=== PATIENT | female | born 1990 | race Caucasian/White ===

== ENCOUNTER → 2017-05-25 | Outpatient (CLI) | payer MEDICAID ==
[~2017-05-25] MED LIST: DOXY25TA46 PO; METO5TAB75 PO; NAPR-243 PO; ONDA4TAB8 PO; ONDA4TAB8 SL; ONDAN4ODT PO; PYRI25TA3 PO; TRM50T PO
--- NOTE | 2017-05-25 11:38 | Diagnostic Imaging Report ---
INDICATION: Back pain. TIME OF EXAMINATION: 11:05 a.m. FINDINGS: Curvature and alignment of the thoracic spine is normal. The vertebral body heights are well-maintained. No fractures identified. There is no subluxation identified. The pedicles and paraspinous line are intact. IMPRESSION: No acute bony abnormality is detected. Dictated by: Dictated on workstation # [id number]
--- NOTE | 2017-05-25 11:40 | Diagnostic Imaging Report ---
INDICATION: Increasing neck pain radiating into the upper back. TIME OF EXAM: 11:02 AM COMPARISON: No prior studies are available for comparison. FINDINGS: Alignment is normal. Vertebral body heights and disc spaces are well-maintained. C1-T1 is identified with clarity on the lateral view. No fracture or subluxation is identified. The prevertebral tissues are normal. The odontoid is intact. IMPRESSION: No acute bony abnormality is detected. Dictated by: Dictated on workstation # [id number]
== END ==
LOC: RAD 10:24
PROVIDERS: ATTEND Family Medicine
DX: M54.2 Cervicalgia (principal); M54.6 Pain in thoracic spine
CPT/HCPCS: 72040; 72072

== ENCOUNTER 2017-08-14 01:46 | Emergency (ER) | payer MEDICAID ==
[~2017-08-14] VITALS: Ht 190.5 cm; Wt 83.9 kg
[~2017-08-14 01:46] MED LIST changes: -DOXY25TA46 PO; +UNISOM25 M1 PO
[2017-08-14 02:19] LABS: BASOPHILS % (AUTO) 0 % (0-10); EOSINOPHILS # (AUTO) 0.2 10^3/uL (0.0-0.3); EOSINOPHILS % (AUTO) 2 % (0-10); HEMATOCRIT 40 % (35-52); HEMOGLOBIN 14.2 G/DL (11.5-16.0); LYMPHOCYTES # (AUTO) 3.3 X 10^3 (1.0-4.0); LYMPHOCYTES % (AUTO) 38 % (12-44); MEAN CORPUSCULAR HEMOGLOBIN 31 PG (25-34); MEAN CORPUSCULAR HGB CONC 36 G/DL (32-36); MEAN CORPUSCULAR VOLUME 87 FL (80-99); MEAN PLATELET VOLUME 9.3 FL (7.4-10.4); MONOCYTES # (AUTO) 0.8 X 10^3 (0.0-1.0); MONOCYTES % (AUTO) 9 % (0-12); NEUTROPHILS # (AUTO) 4.4 X 10^3 (1.8-7.8); NEUTROPHILS % (AUTO) 51 % (42-75); PLATELET COUNT 229 10^3/uL (130-400); RED BLOOD COUNT 4.59 10^6/uL (4.35-5.85); RED CELL DISTRIBUTION WIDTH 12.5 % (10.0-14.5); WHITE BLOOD COUNT 8.8 10^3/uL (4.3-11.0)
--- NOTE | 2017-08-14 02:19 | ED Abdominal Pain ---
General Chief Complaint: Abdominal/GI Problems Stated Complaint: SEVERE ABD PAIN Nursing Triage Note: PT PRESENTS TO ER WITH COMPLAINT OF ABD PAIN THAT IS IN HER LOWER ABD AND UP UNDER HER RIB CAGES. STATES THE PAIN STARTED 30 MIN AGO AFTER HAVING INTERCOURSE. ALSO STATED THAT SHE EXPERIENCED THE SAME PAIN A WEEK AGO THAT WAS NOT AFTER INTERCOURSE, BUT WENT AWAY AFTER AN HOUR. Sepsis Screen: No Definite Risk Source of Information: Patient, Spouse Exam Limitations: No Limitations History of Present Illness Date Seen by Provider: August 14, 2017 Time Seen by Provider: 02:07 Initial Comments The patient presents to the ER by private conveyance with her significant other and a chief complaint that about half hour prior to arrival she began to experience bilateral low pelvic pain that was described as sharp, 8 out of 10. She says she has had this pain about a week ago when she wasn't doing anything and it just came out of nowhere lasted for about an hour and then went away. This time however it was accompanied by nausea and vomiting times one. She is no longer nauseated. She did not take anything for the pain tonight because of her vomiting. She says this time the pain occurred directly after sex. She is not having any discharge, fevers, chills, nausea or other time. She does not have any history of abdominal surgeries. She is a with a Nexplanon in place. She is in a monogamous relationship with her and denies any history of STI's. Her last bowel movement was yesterday, normal formed. She denies a history of trauma or kidney stones. She denies dysuria. Allergies and Home Medications Allergies Coded Allergies: No Known Drug Allergies (Unverified , 07/03/11) Patient Home Medication List Home Medication List Reviewed: Yes Review of Systems Constitutional: No chills, No diaphoresis, No fever, No malaise EENTM: No Blurred Vision, No Double Vision Respiratory: Denies Cough, Denies Shortness of Air Cardiovascular: Denies Chest Pain, Denies Lightheadedness, Denies Syncope Gastrointestinal: See HPI; Denies Abdomen Distended; Abdominal Pain; Denies Constipated, Denies Diarrhea; Nausea; Denies Poor Fluid Intake; Vomiting Genitourinary: Denies Burning, Denies Discharge; Flank Pain (bilateral); Denies Hematuria Musculoskeletal: No back pain, No joint pain Skin: No pruritus, No rash Past Bieahhj-Yfqcsw-Ypqbra Hx Patient Social History Alcohol Use: Occasionally Uses Recreational Drug Use: No Smoking Status: Current Everyday Smoker Recent Foreign Travel: No Contact w/Someone Who Travel: No Recent Infectious Disease Expo: No Immunizations Up To Date Tetanus Booster (TDap): Unknown PED Vaccines UTD: Yes Seasonal Allergies Seasonal Allergies: No Past Medical History Surgeries: Yes (WISDOM TEETH) Respiratory: No Cardiac: No Neurological: No Reproductive Disorders: No Female Reproductive Disorders: Ovarian Cyst Sexually Transmitted Disease: No Gastrointestinal: No Musculoskeletal: No Endocrine: No Cancer: No Psychosocial: No Integumentary: No Blood Disorders: No Physical Exam Vital Signs Vital Signs - First Documented 08/14/17 01:53 Temp 97.4 Pulse 80 Resp 20 B/P (MAP) 126/68 (87) Pulse Ox 98 O2 Delivery Room Air Capillary Refill : Less Than 3 Seconds General Appearance: WD/WN, mild distress HEENT: PERRL/EOMI, pharynx normal (oral mucosa is moist) Neck: non-tender, full range of motion, supple, normal inspection Respiratory: no respiratory distress, no accessory muscle use Cardiovascular: normal peripheral pulses, regular rate, rhythm, no edema Peripheral Pulses: 2+ Radial Pulses (R), 2+ Radial Pulses (L) Gastrointestinal: normal bowel sounds, soft, guarding (suprapubic and bilateral lower quadrants.), rebound (over McBurney's point), tenderness ( bilateral lower quadrants and suprapubic), other (positive for psoas signs on the right and Rovsing sign. Percussion to heels reproduces pain in her right lower quadrant and umbilical region.) Extremities: normal inspection, no pedal edema, normal capillary refill Back: normal inspection, no CVA tenderness Neurologic/Psychiatric: no motor/sensory deficits, alert, normal mood/affect, oriented x 3 Skin: normal color, warm/dry Progress/Results/Core Measures Results/Orders Lab Results Laboratory Tests Test 08/14/17 02:00 Range/Units White Blood Count 8.8 4.3-11.0 10^3/uL Red Blood Count 4.59 4.35-5.85 10^6/uL Hemoglobin 14.2 11.5-16.0 G/DL Hematocrit 40 35-52 % Mean Corpuscular Volume 87 80-99 FL Mean Corpuscular Hemoglobin 31 25-34 PG Mean Corpuscular Hemoglobin Concent 36 32-36 G/DL Red Cell Distribution Width 12.5 10.0-14.5 % Platelet Count 229 130-400 10^3/uL Mean Platelet Volume 9.3 7.4-10.4 FL Neutrophils (%) (Auto) 51 42-75 % Lymphocytes (%) (Auto) 38 12-44 % Monocytes (%) (Auto) 9 0-12 % Eosinophils (%) (Auto) 2 0-10 % Basophils (%) (Auto) 0 0-10 % Neutrophils # (Auto) 4.4 1.8-7.8 X 10^3 Lymphocytes # (Auto) 3.3 1.0-4.0 X 10^3 Monocytes # (Auto) 0.8 0.0-1.0 X 10^3 Eosinophils # (Auto) 0.2 0.0-0.3 10^3/uL Basophils # (Auto) 0.0 0.0-0.1 10^3/uL Urine Color YELLOW Urine Clarity CLEAR Urine pH 5 5-9 Urine Specific [place] 1.025 H 1.016-1.022 Urine Protein 2+ H NEGATIVE Urine Glucose (UA) NEGATIVE NEGATIVE Urine Ketones NEGATIVE NEGATIVE Urine Nitrite NEGATIVE NEGATIVE Urine Bilirubin NEGATIVE NEGATIVE Urine Urobilinogen NORMAL NORMAL MG/DL Urine Leukocyte Esterase 1+ H NEGATIVE Urine RBC (Auto) NEGATIVE NEGATIVE Urine RBC NONE /HPF Urine WBC 0-2 /HPF Urine Squamous Epithelial Cells 2-5 /HPF Urine Crystals NONE /LPF Urine Bacteria FEW H /HPF Urine Casts NONE /LPF Urine Mucus MODERATE H /LPF Urine Other FEW SPERM H /HPF Urine Culture Indicated NO Sodium Level 140 135-145 MMOL/L Potassium Level 3.8 3.6-5.0 MMOL/L Chloride Level 109 H 98-107 MMOL/L Carbon Dioxide Level 21 21-32 MMOL/L Anion Gap 10 5-14 MMOL/L Blood Urea Nitrogen 16 7-18 MG/DL Creatinine 0.83 0.60-1.30 MG/DL Estimat Glomerular Filtration Rate > 60 BUN/Creatinine Ratio 19 Glucose Level 108 H 70-105 MG/DL Calcium Level 9.4 8.5-10.1 MG/DL Magnesium Level 2.0 1.8-2.4 MG/DL Total Bilirubin 0.4 0.1-1.0 MG/DL Aspartate Amino Transf (AST/SGOT) 16 5-34 U/L Alanine Aminotransferase (ALT/SGPT) 18 0-55 U/L Alkaline Phosphatase 47 40-136 U/L C-Reactive Protein High Sensitivity 0.03 0.00-0.50 MG/DL Total Protein 6.9 6.4-8.2 GM/DL Albumin 4.2 3.2-4.5 GM/DL Urine Opiates Screen NEGATIVE NEGATIVE Urine Oxycodone Screen NEGATIVE NEGATIVE Urine Methadone Screen NEGATIVE NEGATIVE Urine Propoxyphene Screen NEGATIVE NEGATIVE Urine Barbiturates Screen NEGATIVE NEGATIVE Ur Tricyclic Antidepressants Screen NEGATIVE NEGATIVE Urine Phencyclidine Screen NEGATIVE NEGATIVE Urine Amphetamines Screen NEGATIVE NEGATIVE Urine Methamphetamines Screen NEGATIVE NEGATIVE Urine Benzodiazepines Screen NEGATIVE NEGATIVE Urine Cocaine Screen NEGATIVE NEGATIVE Urine Cannabinoids Screen POSITIVE H NEGATIVE My Orders Orders - TERRY CHURCHILL Ct Abdomen/Pelvis W Wo (08/14/17 02:11) Saline Lock/Iv-Start (08/14/17 02:11) Cbc With Automated Diff (08/14/17 02:11) Comprehensive Metabolic Panel (08/14/17 02:11) Hs C Reactive Protein (08/14/17 02:11) Drug Screen Stat (Urine) (08/14/17 02:11) Magnesium (08/14/17 02:11) Ua Culture If Indicated (08/14/17 02:11) Urine Bedside (08/14/17 02:11) Iohexol Injection (Omnipaque 350 Mg/Ml 1 (08/14/17 03:00) Ns (Ivpb) (Sodium Chloride 0.9%) (08/14/17 03:00) Medications Given in ED Current Medications Medications Dose Ordered Sig/Rubia Route Start Time Stop Time Status Last Admin Dose Admin Iohexol 100 ml ONCE ONCE IV 08/14/17 03:00 08/14/17 03:01 DC 08/14/17 02:52 100 ML Sodium Chloride 250 ml ONCE ONCE IV 08/14/17 03:00 08/14/17 03:01 DC 08/14/17 02:52 80 ML Vital Signs/I&O 08/14/17 01:53 Temp 97.4 Pulse 80 Resp 20 B/P (MAP) 126/68 (87) Pulse Ox 98 O2 Delivery Room Air Blood Pressure Mean: 87 Progress Progress Note #1: Time: 02:23 Progress Note Patient does not want anything for pain or nausea at this time. Concern for appendicitis versus possible kidney stone. She's not having a CVA tenderness. We 'll get a CT abdomen and pelvis with and without contrast which will allow us to evaluate for stones as well as evaluate the appendix, colon and gynecologic organs. She is fairly well hydrated on appearance so we will not be getting any IV fluids. We will obtain laboratory examination as well. Progress Note #2: Time: 03:33 Progress Note The patient is still hemodynamically stable, with no blood in her hematocrit. He would be reasonable to have her follow-up in the next week or 2 with an OB and do outpatient observation at this time. NSAIDs, heating pads and fluids. Diagnostic Imaging Diagonstic Imaging: CT (with and without contrast) Plain Films/CT/US/NM/MRI: abdomen, pelvis Comments Appendix is not seen but there are no secondary signs for acute appendicitis. Small amount of intermediate density fluid seen within the pelvis which may reflect underlying blood or proteinaceous products. Question underlying 3 cm right adnexal collapsing cyst. Reviewed: Reviewed by Me Departure Impression Primary Impression: Ruptured cyst of ovary Disposition: HOME, SELF-CARE Condition: Stable Departure-Patient Inst. Decision time for Depature: 03:34 Referrals: RANDOLPH LLOYD MD (PCP/Family) Primary Care Physician Patient Instructions: Ovarian Cyst (DC) Add. Discharge Instructions: For the pain you can use Tylenol 1000 mg every 8 hours as well as ibuprofen 800 mg every 8 hours and heating pads. Drink plenty of fluids. If you have nausea you may take one tablet of Zofran every 6 hours as needed. If you develop fevers , chills, nausea vomiting or other worrisome symptoms then you should follow-up with your provider sooner. Otherwise plan to make follow-up appointment with a primary care provider or [employer]LE[employer] SPECIALIST in the next week or 2 as needed. All discharge instructions reviewed with patient and/or family. Voiced understanding. Scripts Ondansetron (Ondansetron Odt) 4 Mg Tab.rapdis 4 MG PO Q6H PRN for NAUSEA/VOMITING, #8 TAB 0 Refills Prov: TERRY CHURCHILL 08/14/17 Copy Copies To 1: RANDOLPH LLOYD MD, TITUS J August 14, 2017 02:19
[2017-08-14 02:21] LABS: BILIRUBIN,URINE NEGATIVE (NEGATIVE); CLARITY,URINE CLEAR; COLOR,URINE YELLOW; GLUCOSE, URINE (UA) NEGATIVE (NEGATIVE); KETONES,URINE NEGATIVE (NEGATIVE); LEUKOCYTE ESTERASE ,URINE 1+ (NEGATIVE); NITRITE,URINE NEGATIVE (NEGATIVE); PH,URINE 5 (5-9); PROTEIN,URINE 2+ (NEGATIVE); UROBILINOGEN,URINE NORMAL (NORMAL)
[2017-08-14 02:31] LABS: BACTERIA,URINE FEW /HPF; URINE OTHER FEW SPERM /HPF; WBC,URINE 0-2 /HPF
[2017-08-14 02:33] LABS: AMPHETAMINE SCREEN, URINE NEGATIVE (NEGATIVE); BARBITURATE SCREEN URINE NEGATIVE (NEGATIVE); BENZODIAZEPINES SCREEN URINE NEGATIVE (NEGATIVE); CANNABINOID SCREEN, URINE POSITIVE (NEGATIVE); COCAINE SCREEN URINE NEGATIVE (NEGATIVE); METHADONE STAT NEGATIVE (NEGATIVE); METHAMPHETAMINE SCREEN URINE S NEGATIVE (NEGATIVE); OPIATE SCREEN URINE NEGATIVE (NEGATIVE); OXYCODONE STAT NEGATIVE (NEGATIVE); PROPOXYPHENE STAT NEGATIVE (NEGATIVE); TRICYCLIC ANTIDEPRESSANTS SCRE NEGATIVE (NEGATIVE)
[2017-08-14 02:36] LABS: ALANINE AMINOTRANSFERASE 18 U/L (0-55); ALBUMIN 4.2 GM/DL (3.2-4.5); ALKALINE PHOSPHATASE 47 U/L (40-136); BILIRUBIN,TOTAL 0.4 MG/DL (0.1-1.0); BUN/CREATININE RATIO 19; CALCIUM 9.4 MG/DL (8.5-10.1); CARBON DIOXIDE 21 MMOL/L (21-32); CHLORIDE 109 MMOL/L (98-107); CREATININE SERUM 0.83 MG/DL (0.60-1.30); GFR ESTIMATED > 60; GLUCOSE 108 MG/DL (70-105); POTASSIUM 3.8 MMOL/L (3.6-5.0); SODIUM 140 MMOL/L (135-145); TOTAL PROTEIN 6.9 GM/DL (6.4-8.2)
[2017-08-14] MEDS: IOHEXOL 350 MG/ML 100 ML (OMNIPAQUE 350) VIAL IV ONE (02:52)
[2017-08-14] MEDS: NS 250 ML (IVPB) BAG IV ONE (02:52)
[2017-08-14] MEDS ORDERED: ONDA4TAB11 PO (03:36)
[2017-08-14 03:53] VITALS: BP 126/68
--- NOTE | 2017-08-14 07:24 | Diagnostic Imaging Report ---
PROCEDURE: CT abdomen and pelvis with and without contrast. TECHNIQUE: Precontrast acquisitions were acquired through the abdomen and pelvis. Multiple contiguous axial images were obtained through the abdomen and pelvis after the administration of intravenous contrast. DATE: August 14, 2017. COMPARISON: None. INDICATION: 27-year-old female, lower abdominal pain after sexual intercourse. FINDINGS: The visualized portions of the lungs are clear. The heart is not enlarged. There is no pericardial effusion. The liver is normal in size and contour. There is no identified liver lesion. The main, right, and left portal veins are patent. The gallbladder is unremarkable. There is no intrahepatic or extrahepatic bile duct ablation. The main pancreatic duct is not abnormally dilated. Unremarkable appearance of the pancreatic parenchyma. The spleen is not enlarged. The adrenal glands are unremarkable. Unremarkable appearance of the renal parenchyma. The urinary collecting systems are not distended. There is no identified renal or ureteral stone. The urinary bladder is underdistended and not well evaluated. The intestinal tract is not distended. The appendix is not well identified. There are no identified prominent secondary findings to specifically suggest acute appendicitis. There is no free intraperitoneal air. There is no drainable fluid collection. There is a small amount of free pelvic fluid. Internal attenuation of the pelvic fluid measures 5 Hounsfield units which is compatible with simple fluid. There is no identified abnormally enlarged lymph node within the abdomen or pelvis which meets CT size criteria for adenopathy. There is a sclerotic lesion of the right L5 vertebral body on axial image 51 measuring 8 mm in size with internal attenuation of 1105 Hounsfield units. This most likely relates to a benign bone island. There is no identified acute bony abnormality. IMPRESSION: CT ABDOMEN AND PELVIS. 1. Small amount of free pelvic fluid of uncertain exact etiology although potentially physiologic. The free fluid demonstrates a simple fluid attenuation. 2. No identified acute abnormality within the abdomen or pelvis. Dictated by: Dictated on workstation # [id number]
== END 2017-08-14 03:53 | disposition home or self-care (01) ==
LOC: EDUNIT# 01:46 → ER 01:50
DX: N83.201 Unspecified ovarian cyst, right side (principal); F17.200 Nicotine dependence, unspecified, uncomplicated
CPT/HCPCS: 36415; 74178; 80053; 80306; 81000; 83735; 84703; 85025; 86141

== ENCOUNTER 2018-01-09 09:47 | Emergency (ER) | payer OTHER, MEDICAID ==
[~2018-01-09] VITALS: Ht 190.5 cm; Wt 89.8 kg
[~2018-01-09 09:47] MED LIST changes: +ONDA4TAB11 PO
--- OUTSIDE RECORDS SUMMARY | 2018-01-09 09:52 | XMS REPORT ---
Author Author ARNULFO SHARMA Organization [employer] Address Unknown Phone Unavailable Care Team Providers Care Seamless Tube Drawer Name Role Phone ARNULFO SHARMA CP Unavailable Allergies No Known Allergies Problems Problem Type Condition ICD-9 Code Onset Dates Condition Status Problem Supervision of normal subsequent V22.1 Active Medications Medication Code System Code Instructions Start Date End Date Status Dosage oGrdon [facility] [address]-58 4 MG Orally every 8 hours as needed Nov 18, 2014 1 tablet Results No Known Results Summary Purpose [employer] Submission
--- OUTSIDE RECORDS SUMMARY | 2018-01-09 09:52 | XMS REPORT | Clinical Summary ---
Author Author [facility] Organization [facility] Address Unknown Phone Unavailable Care Team Providers Care Assistant Professor Of History Name Role Phone PCP Unavailable Allergies Not on File Current Medications Not on file Active Problems Not on file Social History Tobacco Use Types Packs/Day Years Used Date Never Assessed Sex Assigned at Date Recorded Not on file Last Filed Vital Signs Not on file Plan of Treatment Not on file Results Not on filefrom Last 3 Months
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
--- OUTSIDE RECORDS SUMMARY | 2018-01-09 09:52 | XMS REPORT ---
Author Author ISH SANTANA Organization [employer] Address Unknown Phone Unavailable Care Team Providers Care Data Support Specialist Name Role Phone ISH SANTANA CP Unavailable Allergies, Adverse Reactions, Alerts Substance Reaction Event Type N.K.D.A. Info Not Available Non Drug Allergy Problems Problem Type Condition ICD-9 Code Onset Dates Condition Status Assessment Supervision of normal subsequent V22.1 Active Problem Supervision of normal subsequent V22.1 Active Medications Medication Code System Code Instructions Start Date End Date Status Dosage [facility] [place] [address] 28-0.8 MG Orally daily Nov 06, 2014 1 Procedures Procedure Coding System Code Date URINE-NO MICRO CPT-4 82045 Nov 06, 2014 Office Visit, Est Pt., Level 3 CPT-4 94221 Nov 06, 2014 URINE TEST CPT-4 99386 Nov 06, 2014 Vital Signs Date/Time: Nov 06, 2014 Temperature 97.0 F Weight 163.0 lbs Height 74 in BMI 20.928 Index Blood Pressure Diastolic 70 mmHg Blood Pressure Systolic 110 mmHg Cardiac Monitoring Heart Rate 88 bpm Results No Known Results Summary Purpose [employer] Submission
--- OUTSIDE RECORDS SUMMARY | 2018-01-09 09:52 | XMS REPORT ---
Author Author HASEEB SÁNCHEZ [facility] Address [address] [place] [address] Care Team Providers Care Microbiology Soil Scientist Name Role Phone HASEEB SÁNCHEZ Unavailable PROBLEMS Type Condition ICD9-CM Code [id number] Code Onset Dates Condition Status SNOMED Code Problem Supervision of normal subsequent V22.1 Active 58318078 Assessment Acute upper respiratory infection, unspecified J06.9 Feb, Active 914576207 ALLERGIES Substance Reaction Event Type Date Status N.K.D.A. Unknown Non Drug Allergy Feb, Unknown SOCIAL HISTORY No smoking Hx information available PLAN OF CARE VITAL SIGNS Height 74 in 2016-03-01 Weight 170 lbs 2016-03-01 Heart Rate 82 bpm 2016-03-01 Respiratory Rate 18 2016-03-01 BMI 21.82 kg/m2 2016-03-01 Blood pressure systolic 108 mmHg 2016-03-01 Blood pressure diastolic 66 mmHg 2016-03-01 MEDICATIONS Medication Instructions Dosage Frequency Start Date End Date Duration Status PredniSONE 20 mg Orally Once a day 2 tablets 24h Feb, Feb, 05 days Active RESULTS No Results PROCEDURES Procedure Date Ordered Related Diagnosis Body Site Office Visit, Est Pt., Level 3 Mar 01, 2016 IMMUNIZATIONS No Known Immunizations
--- OUTSIDE RECORDS SUMMARY | 2018-01-09 09:53 | XMS REPORT ---
Author Author PETERSON SIMS [facility] Address [address] [place] [address] Care Team Providers Care Bin Operator Name Role Phone PETERSON SIMS Unavailable PROBLEMS Type Condition ICD9-CM Code NSA17-IP Code Onset Dates Condition Status SNOMED Code Problem Acute allergic rhinitis, unspecified seasonality, unspecified trigger J30.9 Active 82024826 Problem Irregular periods/menstrual cycles N92.6 Active 68087214 Problem Supervision of normal subsequent V22.1 Active 02987027 ALLERGIES No Known Allergies ENCOUNTERS Encounter Location Date Diagnosis [facility] [address] [address] Mar, Acute nasopharyngitis J00 [facility] [address] [place] [id number] [place] [address] -[address] 16 Feb, 2017 Acute allergic rhinitis, unspecified seasonality, unspecified trigger J30.9 [facility] [id number] [place] [address]86- 7065 14 Jan, 2017 Bronchitis J40 [facility] [address] [place] [id number] [place] [address]80 -[address]998 11 Jan, 2017 Other viral agents as the cause of diseases classified elsewhere B97.89 and Acute upper respiratory infection, unspecified J06.9 [facility] [id number] [place] [address]85 -[address]26 18 Sep, 2016 Irregular periods/menstrual cycles N92.6 ; Abdominal pain R10.9 and Acute gastritis without bleeding K29.00 [facility] [id number] [place] [address] Apr, Coughing R05 [facility] [address] [place] [address] [place] [address] Mar, Other viral agents as the cause of diseases classified elsewhere B97.89 and Acute upper respiratory infection, unspecified J06.9 [place] [id number] [place] [address] Mar, [facility] [address] [address] Feb, Acute upper respiratory infection, unspecified J06.9 [place] [address] [address] Jan, [place] [address] [address] Jan, Encounter for well woman exam with routine gynecological exam Z01.419 ; Encounter for screening for malignant neoplasm of cervix Z12.4 and Encounter for breast self examination education Z71.89 [place] [address] [address] Nov, Hordeolum internum of left lower eyelid H00.025 [facility] [place] [address] [address] Sep, Torticollis, acute M43.6 [place] [address] [address] Oct, [place] [address] [address] Oct, Supervision of normal subsequent V22.1 [place] [id number] [place] [address]79- 0822 Aug, Wasp sting 989.5 [place] [address] [address]- 2808 14 Jun, 2014 [place] [address] [address] Jun, [place] [address] [place] [address] May, [facility] [place] [facility] [address] [id number] [place] [address] 1[address] May, [facility] [place] [facility] [address] [id number] [place] [address]- 1062 Oct, [facility] [place] [facility] [address] [id number] [place] [address]- 0398 Oct, [facility] [place] [facility] [address] [id number] [place] [address]- 5858 Oct, [facility] [place] [facility] [address] [id number] [place] [address]- 0935 Oct, [facility] [place] [facility] [address] [id number] [place] [address]- 1068 Oct, [facility] [place] [facility] [address] [id number] [place] [address]- 5598 Oct, [facility] [place] [facility] [address] [id number] [place] [address]- 8796 Oct, [facility] [place] [facility] [address] [id number] [place] [address]- 1710 Sep, [facility] [place] [facility] [address] [id number] [place] [address]- 0732 Sep, [facility] [place] [facility] [address] [id number] [place] [address]- 5161 Sep, [facility] [place] [facility] [address] [id number] [place] [address]- 1206 Sep, [facility] [place] [facility] [address] [id number] [place] [address]- 1426 Sep, [facility] [place] [facility] [address] [id number] [place] [address]- 3366 Sep, [facility] [place] [facility] [address] [id number] [place] [address]- 7486 Sep, [facility] [place] [facility] [address] [id number] [place] [address]- 0384 Aug, [facility] [place] [facility] [address] [id number] [place] [address]- 8740 Aug, [facility] [place] [facility] [address] [id number] [place] [address]- 6511 Apr, [facility] [place] [facility] [address] [id number] [place] [address]- 2947 Apr, [facility] [place] [facility] [address] [id number] [place] [address]- 3940 Apr, [facility] [place] [facility] [address] [id number] [place] [address]- 3815 Apr, [facility] [place] [facility] [address] [id number] [place] [address]- 9115 Apr, [facility] [place] [facility] [address] [id number] [place] [address]- 7671 Apr, [facility] [place] [facility] [address] [id number] [place] [address]- 8747 Mar, [facility] [place] [facility] [address] [id number] [place] [address]- 3494 Mar, [facility] [place] [facility] [address] [id number] [place] [address]- 6412 Mar, [facility] [place] [facility] [address] [id number] [place] [address]- 2925 Mar, [facility] [place] [facility] [address] [id number] [place] [address]- 6611 Nov, [facility] [place] [facility] [address] [id number] [place] [address]- 9532 Nov, [facility] [place] [facility] [address] [id number] [place] [address]- 7226 Oct, [facility] [place] [facility] [address] [id number] [place] [address]- 6610 Oct, [facility] [address] [id number] [place] [address]- 3525 Oct, [facility] [place] [facility] [address] [id number] [place] [address]- 6895 Oct, [facility] [place] [facility] [address] [id number] [place] [address]- 2495 Oct, [facility] [place] [facility] [address] [id number] [place] [address]- 5009 Oct, [facility] [place] [facility] [address] [id number] [place] [address]- 6789 Oct, [facility] [place] [facility] [address] [id number] [place] [address]- 1569 Aug, [facility] [place] [facility] [address] [id number] [place] [address]- 6563 Jun, [facility] [place] [facility] [address] [id number] [place] [address]- 4328 May, [facility] [place] [facility] [address] [id number] [place] [address]- 6617 May, [facility] [place] [facility] [address] [id number] [place] [address]- 3543 May, [facility] [place] [facility] [address] [id number] [place] [address]- 2430 May, [facility] [place] [facility] [address] [id number] [place] [address]- 4666 May, [facility] [place] [facility] [address] [id number] [place] [address]- 2959 Apr, [facility] [place] [facility] [address] [id number] [place] [address]- 8292 Dec, [facility] [place] [facility] [address] [id number] [place] [address]- 0256 Dec, [facility] [place] [facility] [address] [address] Dec, [facility] [id number] [address] 60[address] Sep, [facility] [id number] [address] 82[address] Aug, [facility] [id number] [place] [address] 531373- 7313 Aug, [facility] [id number] [address] Aug, [facility] [id number] [place] [address] 587861- 0965 Aug, [facility] [id number] [address] 4967 Aug, [facility] [id number] 5860 Aug, [facility] [id number] [address] Aug, [facility] [id number], [place] [address]- 9885 July, [facility] [id number] [address]- 3030 July, [facility] [address] [address] July, IMMUNIZATIONS No Known Immunizations SOCIAL HISTORY Never Assessed REASON FOR VISIT sinus drainage, sore throat, stuffy nose. been sick for 2 days. [email or web address] PLAN OF CARE Activity Details Follow Up if not improving with PCP or reg follow up Reason: VITAL SIGNS Height 74 in 2017-03-07 Weight 181.8 lbs 2017-03-07 Temperature 98.8 degrees Fahrenheit 2017-03-07 Heart Rate 80 bpm 2017-03-07 Respiratory Rate 20 2017-03-07 BMI 23.34 kg/m2 2017-03-07 Blood pressure systolic 122 mmHg 2017-03-07 Blood pressure diastolic 68 mmHg 2017-03-07 MEDICATIONS Medication Instructions Dosage Frequency Start Date End Date Duration Status Nexplanon 68 MG Active Flonase Allergy Relief 50 MCG/ACT Nasally twice a day 1 spray in each nostril 12h 24 Mar, 2016 30 day(s) Active RESULTS No Results PROCEDURES No Known procedures INSTRUCTIONS MEDICATIONS ADMINISTERED No Known Medications MEDICAL (GENERAL) HISTORY Type Description Date Medical History left ovarian cyst Surgical History wisdom teeth extractjihumberto
--- OUTSIDE RECORDS SUMMARY | 2018-01-09 09:53 | XMS REPORT ---
Author Author MARYLIN Pedraza Organization [facility] Address [address] [place] [address] Care Team Providers Care Vehicle Window Tinter Name Role Phone fideliaJeffUNRULY MARYLIN Unavailable PROBLEMS Type Condition ICD9-CM Code GHH22-NA Code Onset Dates Condition Status SNOMED Code Problem Acute allergic rhinitis, unspecified seasonality, unspecified trigger J30.9 Active 12180328 Problem Irregular periods/menstrual cycles N92.6 Active 08903900 Problem Supervision of normal subsequent V22.1 Active 54166936 ALLERGIES No Known Allergies ENCOUNTERS Encounter Location Date Diagnosis [facility] [address] [address] Mar, Acute nasopharyngitis J00 [facility] [id number] [place] [address]46 -[address]66 16 Feb, 2017 Acute allergic rhinitis, unspecified seasonality, unspecified trigger J30.9 [facility] [id number] [place] [address] 070[address]- 2827 14 Jan, 2017 Bronchitis J40 [facility] [id number] [place] [address]774 -2737 11 Jan, 2017 Other viral agents as the cause of diseases classified elsewhere B97.89 and Acute upper respiratory infection, unspecified J06.9 [facility] [id number] [place] [address]8 -45[address] Sep, Irregular periods/menstrual cycles N92.6 ; Abdominal pain R10.9 and Acute gastritis without bleeding K29.00 [facility] [id number] [place] [address] -[address]28 Apr, Coughing R05 [facility] [id number] [place] [address] 9[address]20 -2386 Mar, Other viral agents as the cause of diseases classified elsewhere B97.89 and Acute upper respiratory infection, unspecified J06.9 [place] [id number] [place] [address]79- 9580 Mar, [facility] [place] [id number] [place] [address] Feb, Acute upper respiratory infection, unspecified J06.9 [place] [id number] [place] [address] 78981- 2707 Jan, [address] [address] Jan, Encounter for well woman exam with routine gynecological exam Z01.419 ; Encounter for screening for malignant neoplasm of cervix Z12.4 and Encounter for breast self examination education Z71.89 [place] [id number] [place] [address]- 2533 Nov, Hordeolum internum of left lower eyelid H00.025 [facility] [place] [id number] [place] [address] -[address]74 Sep, Torticollis, acute M43.6 [place] [id number] [place] [address] 24115- 2182 Oct, [place] [id number] [place] [address] 99737- 3539 Oct, Supervision of normal subsequent V22.1 [place] [id number] [place] [address] 37706- 5315 Aug, Wasp sting 989.5 [place] [id number] [place] [address] 19282- 9915 14 Jun, 2014 [place] [id number] [place] [address] 06775- 2507 Jun, [place] [address] [place] [id number] [place] [address]- 7235 May, [facility] [place] [facility] [address] [id number] [place] [address]- 0599 May, [facility] [place] [facility] [address] [id number] [place] [address]- 1968 Oct, [facility] [place] [facility] [address] [id number] [place] [address]- 4455 Oct, [facility] [place] [facility] [address] [id number] [place] [address]- 8124 Oct, [facility] [place] [facility] [address] [id number] [place] [address]- 6978 Oct, [facility] [place] [facility] [address] [id number] [place] [address]- 4273 Oct, [facility] [place] [facility] [address] [id number] [place] [address]- 6579 Oct, [facility] [place] [facility] [address] [id number] [place] [address]- 5372 Oct, [facility] [place] [facility] [address] [id number] [place] [address]- 4826 Sep, [facility] [place] [facility] [address] [id number] [place] [address]- 8068 Sep, [facility] [place] [facility] [address] [id number] [place] [address]- 1811 Sep, [facility] [place] [facility] [address] [id number] [place] [address]- 7222 Sep, [facility] [place] [facility] [address] [id number] [place] [address]- 5185 Sep, [facility] [place] [facility] [address] [id number] [place] [address]- 1686 Sep, [facility] [place] [facility] [address] [id number] [place] [address]- 2579 Sep, [facility] [place] [facility] [address] [id number] [place] [address]- 9061 Aug, [facility] [place] [facility] [address] [id number] [place] [address]- 9945 Aug, [facility] [place] [facility] [address] [id number] [place] [address]- 2332 Apr, [facility] [place] [facility] [address] [id number] [place] [address]- 3571 Apr, [facility] [place] [facility] [address] [id number] [place] [address]- 5559 Apr, [facility] [place] [facility] [address] [id number] [place] [address]- 0941 Apr, [facility] [place] [facility] [address] [id number] [place] [address]- 7506 Apr, [facility] [place] [facility] [address] [id number] [place] [address]- 1035 Apr, [facility] [place] [facility] [address] [id number] [place] [address]- 1735 Mar, [facility] [place] [facility] [address] [id number] [place] [address]- 7950 Mar, [facility] [place] [facility] [address] [id number] [address]- 8815 Mar, [facility] [place] [facility] [address] [id number], [place] [address]- 6435 Mar, [facility] [place] [facility] [address] [id number] [place] [address]- 6002 Nov, [facility] [place] [facility] [address] [id number] [place] [address]- 4999 Nov, [facility] [place] [facility] [address] [id number] [place] [address]- 0995 Oct, [facility] [place] [facility] [address] [id number] [place] [address]- 5332 Oct, [facility] [address] [id number] [place] [address]- 0291 Oct, [facility] [place] [facility] [address] [id number] [place] [address]- 0668 Oct, [facility] [place] [facility] [address] [id number] [place] [address]- 4320 Oct, [facility] [place] [facility] [address] [id number] [place] [address]- 9975 Oct, [facility] [place] [facility] [address] [id number] [place] [address]- 5619 Oct, [facility] [place] [facility] [address] [id number] [place] [address]- 8999 Aug, [facility] [place] [facility] [address] [id number] [place] [address]- 9434 Jun, [facility] [place] [facility] [address] [id number] [place] [address]- 1237 May, [facility] [place] [facility] [address] [id number] [place] [address]- 1027 May, [facility] [place] [facility] [address] [id number] [place] [address]- 8154 May, [facility] [place] [facility] [address] [id number] [place] [address]- 3674 May, [facility] [place] [facility] [address] [id number] [place] [address]- 1076 May, [facility] [place] [facility] [address] [id number] [place] [address]- 9896 Apr, [facility] [place] [facility] [address] [id number] [place] [address]- 9054 Dec, [facility] [place] [facility] [address] [id number] [place] [address]- 1932 Dec, [facility] [id number] [address]- 2546 Dec, [facility] [address], [place] [address]- 2546 Sep, [facility] [id number] [address]- 2546 Aug, [facility] [id number] [address]- 2546 Aug, [facility] [address], [place] [address]- 2546 Aug, [facility] [address], [place] [address]- 2546 Aug, [facility] [address], [place] [address]- 2546 Aug, [facility] [address], [place] [address]- 2546 Aug, [facility] [address], [place] [address]- 2546 Aug, [facility] [id number] [address]- 2546 July, [facility] [id number] [address]- 2546 July, [facility] [id number], [place] [address]- 2546 July, IMMUNIZATIONS No Known Immunizations SOCIAL HISTORY Never Assessed REASON FOR VISIT Nausea for 2 days. vomiting started today. pt started having periods 1.5 months ago...pt hasnt had on for over a year due to control. pt is on menstural period currently. last BM was yesterday and was normal for her. also having some lower abdominal pains...thinks maybe they are menstural cramps. also reports heartburn and only has that when she is . would aslo like a test. [email or web address] PLAN OF CARE Activity Details Follow Up prn Reason: VITAL SIGNS Height 74 in 2016-10-07 Weight 171.8 lbs 2016-10-07 Temperature 98.1 degrees Fahrenheit 2016-10-07 Heart Rate 82 bpm 2016-10-07 Respiratory Rate 20 2016-10-07 BMI 22.06 kg/m2 2016-10-07 Blood pressure systolic 120 mmHg 2016-10-07 Blood pressure diastolic 80 mmHg 2016-10-07 MEDICATIONS Medication Instructions Dosage Frequency Start Date End Date Duration Status Nexplanon 68 MG Active RESULTS Name Result Date Reference Range TEST, URINE (IN HOUSE) 2016-10-07 RESULTS negative Lot # [id number] Control + Exp date 2017 10 31 UA LONG DIP (IN HOUSE) 2016-10-07 Lot # [id number] Exp date 2017 05 31 Clarity clear Color yellow Odor none GLU negative SUDEEP 1+ KET 2+ SG >1.030 BLO 3+ pH 5.5 Protein 1+ URO 0.2 NIT negative HEIDE negative Lot # [id number] Exp date 2017 02 PROCEDURES Procedure Date Ordered Result Body Site URINE TEST October 07, 2016 URINALYSIS, AUTO, W/O SCOPE October 07, 2016 INSTRUCTIONS MEDICATIONS ADMINISTERED No Known Medications MEDICAL (GENERAL) HISTORY Type Description Date Medical History left ovarian cyst Surgical History wisdom teeth extractjion
--- OUTSIDE RECORDS SUMMARY | 2018-01-09 09:53 | XMS REPORT ---
Author Author HASEEB SÁNCHEZ [facility] Address [address] [place] [address] Care Team Providers Care Earring Maker Name Role Phone HASEEB SÁNCHEZ Unavailable PROBLEMS Type Condition ICD9-CM Code [id number] Code Onset Dates Condition Status SNOMED Code Problem Irregular periods/menstrual cycles N92.6 Active 28181186 Problem Supervision of normal subsequent V22.1 Active 20401629 ALLERGIES No Known Allergies SOCIAL HISTORY No smoking Hx information available PLAN OF CARE VITAL SIGNS MEDICATIONS No Known Medications RESULTS No Results PROCEDURES No Known procedures IMMUNIZATIONS No Known Immunizations
--- OUTSIDE RECORDS SUMMARY | 2018-01-09 09:53 | XMS REPORT ---
Author Author ROME ROMERO Organization [employer] Address Unknown Phone Unavailable Care Team Providers Care Nitroglycerin Distributor Name Role Phone ROME ROMERO CP Unavailable Allergies, Adverse Reactions, Alerts Substance Reaction Event Type N.K.D.A. Info Not Available Non Drug Allergy Problems Problem Type Condition Code Onset Dates Condition Status Assessment Torticollis, acute M43.6 Active Problem Supervision of normal subsequent V22.1 Active Medications No Known Medications Procedures Procedure Coding System Code Date Office Visit, Est Pt., Level 3 CPT-4 91875 October 05, 2015 Vital Signs Date/Time: October 05, 2015 Cardiac Monitoring Heart Rate 88 bpm Weight 173.2 lbs Height 74 in Blood Pressure Diastolic 74 mmHg Blood Pressure Systolic 124 mmHg Results No Known Results Summary Purpose [employer] Submission
--- OUTSIDE RECORDS SUMMARY | 2018-01-09 09:53 | XMS REPORT ---
Author Author KRYSTLE KAPLAN Organization [facility] Address [address] [place] [address] Care Team Providers Care Documentation Manager Name Role Phone KRYSTLE KAPLAN Unavailable PROBLEMS Type Condition ICD9-CM Code QYI96-LX Code Onset Dates Condition Status SNOMED Code Problem Acute allergic rhinitis, unspecified seasonality, unspecified trigger J30.9 Active 18116783 Problem Irregular periods/menstrual cycles N92.6 Active 03441746 Problem Supervision of normal subsequent V22.1 Active 32014956 ALLERGIES No Known Allergies ENCOUNTERS Encounter Location Date Diagnosis [facility] [address] [place] [phone] Aug, Scalp tenderness R51 [facility] [address] [place] [address] Mar, Acute nasopharyngitis J00 [facility] [address] [place] [id number] [place] [address] -[address]96 16 Feb, 2017 Acute allergic rhinitis, unspecified seasonality, unspecified trigger J30.9 [facility] [id number] [place] [address]42- [address]388 14 Jan, 2017 Bronchitis J40 [facility] [address] [place] [id number] [place] [address]50 -[address]99 11 Jan, 2017 Other viral agents as the cause of diseases classified elsewhere B97.89 and Acute upper respiratory infection, unspecified J06.9 [facility] [address] [place] [id number] [place] [address] 18 Sep, 2016 Irregular periods/menstrual cycles N92.6 ; Abdominal pain R10.9 and Acute gastritis without bleeding K29.00 [facility] [id number] [place] [address]47 [address]3 Apr, Coughing R05 [facility] [place] [id number] [place] [address]6651 Mar, Other viral agents as the cause of diseases classified elsewhere B97.89 and Acute upper respiratory infection, unspecified J06.9 [place] [address] [address] Mar, [facility] [place] [id number] [place] [address]36 Feb, Acute upper respiratory infection, unspecified J06.9 [place] [address] [address] Jan, [place] [address] [address] Jan, Encounter for well woman exam with routine gynecological exam Z01.419 ; Encounter for screening for malignant neoplasm of cervix Z12.4 and Encounter for breast self examination education Z71.89 [place] [id number] [place] [address]004 Nov, Hordeolum internum of left lower eyelid H00.025 [facility] [place] [id number] [place] [address]66 [address]1257 Sep, Torticollis, acute M43.6 [place] [id number] [place] [address]6091- 5415 Oct, [place] [id number] [place] [address]2372- 7266 Oct, Supervision of normal subsequent V22.1 [place] [address] [address] Aug, Wasp sting 989.5 [place] [address] [address]- [address]17 Jun, [facility] [place] [facility] [address] [id number] [place] [address] Jun, [facility] [place] [facility] [address] [id number] [place] [address] May, [facility] [place] [facility] [address] [id number] [place] [address] 12[address] May, [facility] [place] [facility] [address] [id number] [place] [address]109 Oct, [facility] [place] [facility] [address] [id number] [place] [address] 3765 Oct, [facility] [place] [facility] [address] [id number] [place] [address] 8491 Oct, [facility] [place] [facility] [address] [id number] [place] [address] 5031 Oct, [facility] [place] [facility] [address] [id number] [place] [address] 7608 Oct, [facility] [place] [facility] [address] [id number] [place] [address] 4070 Oct, [facility] [place] [facility] [address] [id number] [place] [address] 6586 Oct, [facility] [place] [facility] [address] [id number] [place] [address] 0866 Sep, [facility] [place] [facility] [address] [id number] [place] [address] 1479 Sep, [facility] [place] [facility] [address] [id number] [place] [address] 1667 Sep, [facility] [place] [facility] [address] [id number] [place] [address] 4036 Sep, [facility] [place] [facility] [address] [id number] [place] [address]- 9373 Sep, [facility] [place] [facility] [address] [id number] [place] [address] 5218 Sep, [facility] [place] [facility] [address] [id number] [place] [address] 9165 Sep, [facility] [place] [facility] [address] [id number] [place] [address] 5260 Aug, [facility] [place] [facility] [address] [id number] [place] [address] 6155 Aug, [facility] [place] [facility] [address] [id number] [place] [address]- 5104 Apr, [facility] [place] [facility] [address] [id number] [place] [address]- 9592 Apr, [facility] [place] [facility] [address] [id number] [place] [address]- 0921 Apr, [facility] [place] [facility] [address] [id number] [place] [address]- 4795 Apr, [facility] [place] [facility] [address] [id number] [place] [address]- 0869 Apr, [facility] [place] [facility] [address] [id number] [place] [address]- 6053 Apr, [facility] [place] [facility] [address] [id number] [place] [address]- 1138 Mar, [facility] [place] [facility] [address] [id number] [place] [address]- 9677 Mar, [facility] [place] [facility] [address] [id number] [place] [address]- 5560 Mar, [facility] [place] [facility] [address] [id number] [place] [address]- 2663 Mar, [facility] [place] [facility] [address] [id number] [place] [address] 18 Nov, 2012 [facility] [place] [facility] [address] [id number] [place] [address]- 2553 13 Nov, 2012 [facility] [place] [facility] [address] [id number] [place] [address]- 2970 Oct, [facility] [address] [id number] [place] [address]- 0158 Oct, [facility] [place] [facility] [address] [id number] [place] [address]- 1737 Oct, [facility] [place] [facility] [address] [id number] [place] [address]- 3759 Oct, [facility] [place] [facility] [address] [id number] [place] [address]- 3875 Oct, [facility] [place] [facility] [address] [id number] [place] [address]- 8404 Oct, [facility] [place] [facility] [address] [id number] [place] [address] 2647 Oct, [facility] [place] [facility] [address] [id number] [place] [address]- 4206 Aug, [facility] [address] [id number] [place] [address]- 0159 Jun, [facility] [place] [facility] [address] [id number] [place] [address]- 4055 May, [facility] [place] [facility] [address] [id number] [place] [address]- [address]12 15 May, 2012 [facility] [place] [facility] [address] [id number] [place] [address]- 8004 May, [facility] [place] [facility] [address] [id number] [place] [address]- 5859 09 May, 2012 [facility] [place] [facility] [address] [id number] [place] [address]- 0333 04 May, 2012 [facility] [place] [facility] [address] [id number] [place] [address]- 4[address] 28 Apr, 2012 [facility] [place] [facility] [address] [id number] [place] [address]- 7020 Dec, [facility] [id number] [address] Dec, [facility] [address] [place] [address] Dec, [facility] [address] [place] [address] Sep, [facility] [address] [place] [address] Aug, [facility] [address] [place] [address] Aug, [facility] [address] [place] [address]- [address] Aug, [facility] [address] [place] [address] Aug, [facility] [address] [place] [address]- 275[address] Aug, [facility] [address] [place] [address]- [address] Aug, [facility] [address] [place] [address] Aug, [facility] [id number] [address] July, [facility] [id number] [address] July, [facility] [id number] [address] July, IMMUNIZATIONS No Known Immunizations SOCIAL HISTORY Never Assessed REASON FOR VISIT cough, congestion Pt states that she has had a cough and dizzy spells for the last couple of days FERNANDO Marcano PLAN OF CARE Activity Details Follow Up prn Reason: VITAL SIGNS Height 74 in 2017-04-16 Weight 182.4 lbs 2017-04-16 Temperature 98.6 degrees Fahrenheit 2017-04-16 Heart Rate 84 bpm 2017-04-16 Respiratory Rate 20 2017-04-16 Oximetry 97 % 2017-04-16 BMI 23.42 kg/m2 2017-04-16 Blood pressure systolic 112 mmHg 2017-04-16 Blood pressure diastolic 62 mmHg 2017-04-16 MEDICATIONS Medication Instructions Dosage Frequency Start Date End Date Duration Status Nexplanon 68 MG Active Flonase Allergy Relief 50 MCG/ACT Nasally twice a day 1 spray in each nostril 12h 24 Mar, 2016 30 day(s) Active RESULTS No Results PROCEDURES Procedure Date Ordered Result Body Site MEASURE BLOOD OXYGEN LEVEL Apr 16, 2017 INSTRUCTIONS MEDICATIONS ADMINISTERED No Known Medications MEDICAL (GENERAL) HISTORY Type Description Date Medical History left ovarian cyst Surgical History wisdom teeth extractjihumberto
--- OUTSIDE RECORDS SUMMARY | 2018-01-09 09:53 | XMS REPORT ---
Author Author HASEEB SÁNCHEZ [facility] Address [address] [place] [address] Care Team Providers Care Helpdesk Analyst Name Role Phone HASEEB SÁNCHEZ Unavailable PROBLEMS Type Condition ICD9-CM Code [id number] Code Onset Dates Condition Status SNOMED Code Problem Irregular periods/menstrual cycles N92.6 Active 84556225 Problem Supervision of normal subsequent V22.1 Active 97989529 ALLERGIES No Known Allergies SOCIAL HISTORY Never Assessed PLAN OF CARE VITAL SIGNS Height 74 in 2016-05-14 Weight 171 lbs 2016-05-14 Temperature 98.2 degrees Fahrenheit 2016-05-14 Heart Rate 84 bpm 2016-05-14 Respiratory Rate 20 2016-05-14 BMI 21.95 kg/m2 2016-05-14 Blood pressure systolic 114 mmHg 2016-05-14 Blood pressure diastolic 76 mmHg 2016-05-14 MEDICATIONS Medication Instructions Dosage Frequency Start Date End Date Duration Status Flonase Allergy Relief 50 MCG/ACT Nasally twice a day 1 spray in each nostril 12h Mar, 30 day(s) Active PredniSONE 20 mg Orally Once a day 2 tablets 24h Apr, Apr, 05 days Active RESULTS No Results PROCEDURES No Known procedures IMMUNIZATIONS No Known Immunizations MEDICAL (GENERAL) HISTORY Type Description Date Medical History left ovarian cyst Surgical History wisdom teeth extractjion
--- OUTSIDE RECORDS SUMMARY | 2018-01-09 09:53 | XMS REPORT ---
Author Author ALFREDO NAVARRO Organization [employer] Address Unknown Phone Unavailable Care Team Providers Care Chief Operating Officer Name Role Phone ALFREDO NAVARRO CP Unavailable Allergies, Adverse Reactions, Alerts Substance Reaction Event Type N.K.D.A. Info Not Available Non Drug Allergy Problems Problem Type Condition Code Onset Dates Condition Status Assessment Encounter for well woman exam with routine gynecological exam Z01.419 Active Assessment Encounter for screening for malignant neoplasm of cervix Z12.4 Active Problem Supervision of normal subsequent V22.1 Active Assessment Encounter for breast self examination education Z71.89 Active Medications No Known Medications Procedures Procedure Coding System Code Date ENCINAS VAG, DNA, DIR PROBE CPT-4 99076 Jan 24, 2016 [facility] CPT-4 NOBLL Jan 24, 2016 SPECIMEN HANDLING CPT-4 68904 Jan 24, 2016 Preventive Care Est Pt. Age 18-39 CPT-4 40901 Jan 24, 2016 No Charge CPT-4 56033 Jan 24, 2016 Results Name Result Date Reference Range Unit Abnormality Flag PDF Report ----PDF Report1 LCLS 20160124 CULTURE, GENITAL ----Genital Culture, Routine Final report [id number] BACTERIAL VAGINOSIS (IN HOUSE) ----RESULTS negative 20160124 ----Control + 20160124 ----Lot # [id number] ----Exp date 20160124 TRICHOMONAS (IN HOUSE) ----Exp date 20160124 ----Control + 20160124 ----Lot # [id number] ----TRICHOMONAS negative 20160124 GC/CHLAM PROBE (STATE) Summary Purpose [employer] Submission
--- OUTSIDE RECORDS SUMMARY | 2018-01-09 09:53 | XMS REPORT ---
Author Author MARYLIN GARCIA Organization [facility] Address [address] [place] [address] Care Team Providers Care Violin Teacher Name Role Phone MARYLIN GARCIA Unavailable PROBLEMS Type Condition ICD9-CM Code OWL39-PJ Code Onset Dates Condition Status SNOMED Code Problem Irregular periods/menstrual cycles N92.6 Active 88805724 Problem Supervision of normal subsequent V22.1 Active 61530036 ALLERGIES Substance Reaction Event Type Date Status N.K.D.A. Unknown Non Drug Allergy Mar, Unknown SOCIAL HISTORY No smoking Hx information available PLAN OF CARE Activity Details Follow Up prn Reason: VITAL SIGNS Height 74 in 2016-04-15 Weight 169.0 lbs 2016-04-15 Temperature 98.8 degrees Fahrenheit 2016-04-15 Heart Rate 80 bpm 2016-04-15 Respiratory Rate 18 2016-04-15 BMI 21.70 kg/m2 2016-04-15 Blood pressure systolic 116 mmHg 2016-04-15 Blood pressure diastolic 70 mmHg 2016-04-15 MEDICATIONS Medication Instructions Dosage Frequency Start Date End Date Duration Status Flonase Allergy Relief 50 MCG/ACT Nasally twice a day 1 spray in each nostril 12h Mar, 30 day(s) Active Cetirizine HCl 10 MG Orally Once a day 1 tablet 24h Mar, Apr, 30 day(s) Active RESULTS No Results PROCEDURES Procedure Date Ordered Related Diagnosis Body Site Office Visit, Est Pt., Level 3 Apr 15, 2016 IMMUNIZATIONS No Known Immunizations
--- OUTSIDE RECORDS SUMMARY | 2018-01-09 09:53 | XMS REPORT ---
Author Author ALFREDO NAVARRO Organization [employer] Address Unknown Phone Unavailable Care Team Providers Care Account Underwriter Name Role Phone ALFREDO NAVARRO CP Unavailable Allergies No Known Allergies Problems Problem Type Condition Code Onset Dates Condition Status Problem Supervision of normal subsequent V22.1 Active Medications No Known Medications Results No Known Results Summary Purpose [employer] Submission
--- OUTSIDE RECORDS SUMMARY | 2018-01-09 09:55 | XMS REPORT | Continuity of Care Document ---
Author Author [facility] Address Unknown Phone Unavailable Allergies Active Description Code Type Severity Reaction Onset Reported/Identified Relationship to Patient Clinical Status Yes No Known Drug Allergies [id number] Drug Allergy Unknown N/A 07/03/2011 Medications There is no data. Problems Date Dx Coded Attending Type Code Diagnosis Diagnosed By 07/03/2011 Ot 845.00 07/03/2011 Ot 959.7 07/03/2011 Ot E000.8 07/03/2011 Ot E849.0 07/03/2011 Ot E927.0 08/13/2011 JORDY ELDER DO V72.41 TEST NEGATIVE RESULT 08/13/2011 V72.41 TEST NEGATIVE RESULT 08/13/2011 JORDY ELDER DO V72.41 TEST NEGATIVE RESULT 08/13/2011 V72.41 TEST NEGATIVE RESULT 08/13/2011 V72.41 TEST NEGATIVE RESULT 08/13/2011 V72.41 TEST NEGATIVE RESULT 08/13/2011 ALKA CONDON APRN V72.41 TEST NEGATIVE RESULT 08/13/2011 HASEEB SÁNCHEZ APRN V72.41 TEST NEGATIVE RESULT 08/13/2011 HASEEB SÁNCHEZ APRN V72.41 TEST NEGATIVE RESULT 08/13/2011 HASEEB SÁNCHEZ APRN V72.41 TEST NEGATIVE RESULT 08/13/2011 ALKA CONDON APRN V72.41 TEST NEGATIVE RESULT 08/13/2011 JOAQUÍN NARVAEZ APRN V72.41 TEST NEGATIVE RESULT 08/13/2011 HASEEB SÁNCHEZ APRN V72.41 TEST NEGATIVE RESULT 08/13/2011 HASEEB SÁNCHEZ APRN V72.41 TEST NEGATIVE RESULT 08/13/2011 SIH SANTANA APRN V72.41 TEST NEGATIVE RESULT 08/13/2011 REBEKA LOZANO, PAM Finch V72.41 TEST NEGATIVE RESULT 08/13/2011 ISH SANTANA APRN V72.41 TEST NEGATIVE RESULT 08/19/2011 JORDY ELDER DO V25.09 Gynecologic Services Contraceptive General Counseling 08/19/2011 JORDY ELDER DO V74.5 visit for: 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 08/19/2011 JORDY ELDER DO V76.2 Cervical Pap Smear 08/19/2011 V25.09 Gynecologic Services Contraceptive General Counseling 08/19/2011 V74.5 visit for: 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 08/19/2011 V76.2 Cervical Pap Smear 08/19/2011 JORDY ELDER DO V25.09 Gynecologic Services Contraceptive General Counseling 08/19/2011 JORDY ELDER DO V74.5 visit for: 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 08/19/2011 JORDY ELDER DO V76.2 Cervical Pap Smear 08/19/2011 V25.09 Gynecologic Services Contraceptive General Counseling 08/19/2011 V74.5 visit for: 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 08/19/2011 V76.2 Cervical Pap Smear 08/19/2011 V25.09 Gynecologic Services Contraceptive General Counseling 08/19/2011 V74.5 visit for: 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 08/19/2011 V76.2 Cervical Pap Smear 08/19/2011 V25.09 Gynecologic Services Contraceptive General Counseling 08/19/2011 V74.5 visit for: 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 08/19/2011 V76.2 Cervical Pap Smear 08/19/2011 ALKA CONDON APRN V25.09 Gynecologic Services Contraceptive General Counseling 08/19/2011 ALKA CONDON APRN V74.5 visit for: 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 08/19/2011 ALKA CONDON APRN V76.2 Cervical Pap Smear 08/19/2011 HASEEB SÁNCHEZ APRN V25.09 Gynecologic Services Contraceptive General Counseling 08/19/2011 HASEEB SÁNCHEZ APRN V74.5 visit for: 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 08/19/2011 HASEEB SÁNCHEZ APRN V76.2 Cervical Pap Smear 08/19/2011 HASEEB SÁNCHEZ APRN V25.09 Gynecologic Services Contraceptive General Counseling 08/19/2011 HASEEB SÁNCHEZ APRN V74.5 VISIT FOR: SCREENING EXAM BACT/SPIROCHETAL VENEREAL DISEASE 08/19/2011 HASEEB SÁNCHEZ APRN V76.2 Cervical Pap Smear 08/19/2011 HASEEB SÁNCHEZ APRN V25.09 Gynecologic Services Contraceptive General Counseling 08/19/2011 HASEEB SÁNCHEZ APRN V74.5 VISIT FOR: SCREENING EXAM BACT/SPIROCHETAL VENEREAL DISEASE 08/19/2011 HASEEB SÁNCHEZ APRN V76.2 Cervical Pap Smear 08/19/2011 ELLIOT BAILEYALKA CRAIG APRN N V25.09 Gynecologic Services Contraceptive General Counseling 08/19/2011 ELLIOT JIMENEZ ALKA IVAN V74.5 VISIT FOR: SCREENING EXAM BACT/SPIROCHETAL VENEREAL DISEASE 08/19/2011 ELLIOT JIMENEZ ALKA IVAN N V76.2 Cervical Pap Smear 08/19/2011 JOAQUÍN NARVAEZ APRN R V25.09 Gynecologic Services Contraceptive General Counseling 08/19/2011 JOAQUÍN NARVAEZ APRN R V74.5 VISIT FOR: SCREENING EXAM BACT/SPIROCHETAL VENEREAL DISEASE 08/19/2011 FLORENCIO NARVAEZ APRNINA R V76.2 Cervical Pap Smear 08/19/2011 HSAEEB SÁNCHEZ APRN V25.09 Gynecologic Services Contraceptive General Counseling 08/19/2011 HASEEB SÁNCHEZ APRN V74.5 VISIT FOR: SCREENING EXAM BACT/SPIROCHETAL VENEREAL DISEASE 08/19/2011 HASEEB SÁNCHEZ APRN V76.2 Cervical Pap Smear 08/19/2011 HASEEB SÁNCHEZ APRN V25.09 Gynecologic Services Contraceptive General Counseling 08/19/2011 HASEEB SÁNCHEZ APRN V74.5 VISIT FOR: SCREENING EXAM BACT/SPIROCHETAL VENEREAL DISEASE 08/19/2011 HASEEB SÁNCHEZ APRN V76.2 Cervical Pap Smear 08/19/2011 ISH SANTANA APRN V25.09 Gynecologic Services Contraceptive General Counseling 08/19/2011 ISH SANTANA APRN V74.5 VISIT FOR: SCREENING EXAM BACT/SPIROCHETAL VENEREAL DISEASE 08/19/2011 ISH SANTANA APRN V76.2 Cervical Pap Smear 08/19/2011 REBEKA LOZANO, PAM A V25.09 Gynecologic Services Contraceptive General Counseling 08/19/2011 REBEKA LOZANO, PAM Finch V74.5 VISIT FOR: SCREENING EXAM BACT/SPIROCHETAL VENEREAL DISEASE 08/19/2011 PAM STALEY PHD V76.2 Cervical Pap Smear 08/19/2011 ESTHER ISH IVAN V25.09 Gynecologic Services Contraceptive General Counseling 08/19/2011 ESTHERISH Rojas APRN V74.5 VISIT FOR: SCREENING EXAM BACT/SPIROCHETAL VENEREAL DISEASE 08/19/2011 ESTHERISH Rojas APRN V76.2 Cervical Pap Smear 08/28/2011 JORDY ELDER DO 795.03 Pap Smear (+) Low Grade Squamous Intraepithelial Lesion 08/28/2011 JORDY ELDER DO V04.89 Vaccines Prophylactic Need Against Viral Diseases 08/28/2011 795.03 Pap Smear (+ ) Low Grade Squamous Intraepithelial Lesion 08/28/2011 V04.89 Vaccines Prophylactic Need Against Viral Diseases 08/28/2011 JORDY ELDER DO 795.03 Pap Smear (+) Low Grade Squamous Intraepithelial Lesion 08/28/2011 JORDY ELDER DO V04.89 Vaccines Prophylactic Need Against Viral Diseases 08/28/2011 795.03 Pap Smear (+ ) Low Grade Squamous Intraepithelial Lesion 08/28/2011 V04.89 Vaccines Prophylactic Need Against Viral Diseases 08/28/2011 795.03 Pap Smear (+ ) Low Grade Squamous Intraepithelial Lesion 08/28/2011 V04.89 Vaccines Prophylactic Need Against Viral Diseases 08/28/2011 795.03 Pap Smear (+ ) Low Grade Squamous Intraepithelial Lesion 08/28/2011 V04.89 Vaccines Prophylactic Need Against Viral Diseases 08/28/2011 ALKA CONDON APRN N 795.03 Pap Smear (+) Low Grade Squamous Intraepithelial Lesion 08/28/2011 ALKA CONDON APRN N V04.89 Vaccines Prophylactic Need Against Viral Diseases 08/28/2011 HASEEB SÁNCHEZ APRN 795.03 Pap Smear (+) Low Grade Squamous Intraepithelial Lesion 08/28/2011 HASEEB SÁNCHEZ APRN V04.89 Vaccines Prophylactic Need Against Viral Diseases 08/28/2011 HASEEB SÁNCHEZ APRN 795.03 Pap Smear (+) Low Grade Squamous Intraepithelial Lesion 08/28/2011 GONZALO COUNTER HAND, HASEEB T V04.89 VACCINES PROPHYLACTIC NEED AGAINST VIRAL DISEASES 08/28/2011 HASEEB SÁNCHEZ APRN T 795.03 Pap Smear (+) Low Grade Squamous Intraepithelial Lesion 08/28/2011 HASEEB SÁNCHEZ APRN T V04.89 VACCINES PROPHYLACTIC NEED AGAINST VIRAL DISEASES 08/28/2011 ELLIOT JIMENEZ APRN, ALKA N 795.03 Pap Smear (+) Low Grade Squamous Intraepithelial Lesion 08/28/2011 ELLIOT JIMENEZ APRALKA Rojas N V04.89 VACCINES PROPHYLACTIC NEED AGAINST VIRAL DISEASES 08/28/2011 SOLANGE COUNTER HAND, JOAQUÍN R 795.03 Pap Smear (+) Low Grade Squamous Intraepithelial Lesion 08/28/2011 SOLANGE CHILDRESSN, JOAQUÍN R V04.89 VACCINES PROPHYLACTIC NEED AGAINST VIRAL DISEASES 08/28/2011 HASEEB SÁNCHEZ APRN T 795.03 Pap Smear (+) Low Grade Squamous Intraepithelial Lesion 08/28/2011 HASEEB SÁNCHEZ APRN V04.89 VACCINES PROPHYLACTIC NEED AGAINST VIRAL DISEASES 08/28/2011 HASEEB SÁNCHEZ APRN 795.03 Pap Smear (+) Low Grade Squamous Intraepithelial Lesion 08/28/2011 HASEEB SÁNCHEZ APRN V04.89 VACCINES PROPHYLACTIC NEED AGAINST VIRAL DISEASES 08/28/2011 ISH SANTANA APRN A 795.03 Pap Smear (+) Low Grade Squamous Intraepithelial Lesion 08/28/2011 ISH SANTANA APRN A V04.89 VACCINES PROPHYLACTIC NEED AGAINST VIRAL DISEASES 08/28/2011 REBEKA LOZANO, PAM A 795.03 Pap Smear (+) Low Grade Squamous Intraepithelial Lesion 08/28/2011 REBEKA LOZANO, PAM A V04.89 VACCINES PROPHYLACTIC NEED AGAINST VIRAL DISEASES 08/28/2011 ISH SANTANA APRN A 795.03 Pap Smear (+) Low Grade Squamous Intraepithelial Lesion 08/28/2011 ESTHERISH Rojas APRN A V04.89 VACCINES PROPHYLACTIC NEED AGAINST VIRAL DISEASES 09/15/2011 JORDY ELDER DO V72.42 TEST POSITIVE RESULT 09/15/2011 V72.42 TEST POSITIVE RESULT 09/15/2011 ELDER DOJORDY V72.42 TEST POSITIVE RESULT 09/15/2011 V72.42 TEST POSITIVE RESULT 09/15/2011 V72.42 TEST POSITIVE RESULT 09/15/2011 V72.42 TEST POSITIVE RESULT 09/15/2011 ALKA CONDON APRN N V72.42 TEST POSITIVE RESULT 09/15/2011 HASEEB SÁNCHEZ APRN T V72.42 TEST POSITIVE RESULT 09/15/2011 HASEEB SÁNCHEZ APRN T V72.42 TEST POSITIVE RESULT 09/15/2011 HASEEB SÁNCHEZ APRN T V72.42 TEST POSITIVE RESULT 09/15/2011 ZARATEALKA WILSON APRN N V72.42 TEST POSITIVE RESULT 09/15/2011 JOAQUÍN NARVAEZ APRN R V72.42 TEST POSITIVE RESULT 09/15/2011 HASEEB SÁNCHEZ APRN T V72.42 TEST POSITIVE RESULT 09/15/2011 HASEEB SÁNCHEZ APRN T V72.42 TEST POSITIVE RESULT 09/15/2011 ISH SANTANA APRN A V72.42 TEST POSITIVE RESULT 09/15/2011 REBEKA LOZANO, PAM A V72.42 TEST POSITIVE RESULT 09/15/2011 ISH SANTANA APRN A V72.42 TEST POSITIVE RESULT 09/27/2011 Ot 643.93 09/27/2011 Ot 787.03 05/18/2012 Ot 648.94 OTH CURR COND- 05/18/2012 Ot 788.1 DYSURIA 05/20/2012 JORDY ELDER DO 664.44 UNSPECIFIED PERINEAL LACERATION 05/20/2012 664.44 UNSPECIFIED PERINEAL LACERATION 05/20/2012 JORDY ELDER DO K 664.44 UNSPECIFIED PERINEAL LACERATION 05/20/2012 664.44 UNSPECIFIED PERINEAL LACERATION 05/20/2012 664.44 UNSPECIFIED PERINEAL LACERATION 05/20/2012 664.44 UNSPECIFIED PERINEAL LACERATION 05/20/2012 ALKA CONDON APRN N 664.44 UNSPECIFIED PERINEAL LACERATION 05/20/2012 HASEEB SÁNCHEZ APRN 664.44 UNSPECIFIED PERINEAL LACERATION 05/20/2012 HASEEB SÁNCHEZ APRN 664.44 UNSPECIFIED PERINEAL LACERATION 05/20/2012 HASEEB SÁNCHEZ APRN 664.44 UNSPECIFIED PERINEAL LACERATION 05/20/2012 ALKA CONDON APRN N 664.44 UNSPECIFIED PERINEAL LACERATION 05/20/2012 SOLANGE COUNTER HAND, JOAQUÍN R 664.44 UNSPECIFIED PERINEAL LACERATION 05/20/2012 GONZALO IVAN, HASEEB T 664.44 UNSPECIFIED PERINEAL LACERATION 05/20/2012 GONZALO IVAN, HASEEB T 664.44 UNSPECIFIED PERINEAL LACERATION 05/20/2012 ESTHER CHILDRESSN, ISH A 664.44 UNSPECIFIED PERINEAL LACERATION 05/20/2012 REBEKA PHD, PAM Finch 664.44 UNSPECIFIED PERINEAL LACERATION 05/20/2012 ESTHER COUNTER HAND, ISH A 664.44 UNSPECIFIED PERINEAL LACERATION 06/04/2012 078.19 WARTS, COMMON 06/04/2012 JORDY ELDER DO 078.19 WARTS, COMMON 06/04/2012 078.19 WARTS, COMMON 06/04/2012 078.19 WARTS, COMMON 06/04/2012 078.19 WARTS, COMMON 06/04/2012 ELLIOT JIMENEZ APRN, ALKA N 078.19 WARTS, COMMON 06/04/2012 HSAEEB SÁNCHEZ APRN T 078.19 WARTS, COMMON 06/04/2012 GONZALO IVAN, HASEEB T 078.19 WARTS, COMMON 06/04/2012 GONZALO IVAN, HASEEB T 078.19 WARTS, COMMON 06/04/2012 ELLIOT JIMENEZ APRN, ALKA N 078.19 WARTS, COMMON 06/04/2012 SOLANGE IVAN, JOAQUÍN R 078.19 WARTS, COMMON 06/04/2012 HASEEB SÁNCHEZ APRN T 078.19 WARTS, COMMON 06/04/2012 GONZALO IVAN, HASEEB T 078.19 WARTS, COMMON 06/04/2012 ESTHER IVAN, ISH A 078.19 WARTS, COMMON 06/04/2012 REBEKA LOZANO, PAM Finch 078.19 WARTS, COMMON 06/04/2012 ESTHER IVAN, ISH A 078.19 WARTS, COMMON 10/26/2012 V73.81 HPV SCREENING 10/26/2012 V73.81 HPV SCREENING 10/26/2012 V73.81 HPV SCREENING 10/26/2012 ELLIOT JIMENEZ APRN, ALKA N V73.81 HPV SCREENING 10/26/2012 HASEEB SÁNCHEZ APRN V73.81 HPV SCREENING 10/26/2012 HASEEB SÁNCHEZ APRN V73.81 HPV SCREENING 10/26/2012 HASEEB SÁNCHEZ APRN V73.81 HPV SCREENING 10/26/2012 ALKA CONDON APRN N V73.81 HPV SCREENING 10/26/2012 JOAUQÍN NARVAEZ APRN R V73.81 HPV SCREENING 10/26/2012 HASEEB SÁNCHEZ APRN V73.81 HPV SCREENING 10/26/2012 HASEEB SÁNCHEZ APRN V73.81 HPV SCREENING 10/26/2012 ESTHERISH VILLAGRAN APRN A V73.81 HPV SCREENING 10/26/2012 REBEKA PHD, PAM Finch V73.81 HPV SCREENING 10/26/2012 ESTHERMAHAD Rojas APRNIDI A V73.81 HPV SCREENING 11/09/2012 V25.43 IMPLANON REMOVAL 11/09/2012 V25.43 IMPLANON REMOVAL 11/09/2012 ELLIOT JIMENEZ COUNTER HANDLAKA Rojas N V25.43 IMPLANON REMOVAL 11/09/2012 HASEEB SÁNCHEZ APRN V25.43 IMPLANON REMOVAL 11/09/2012 HASEEB SÁNCHEZ APRN V25.43 IMPLANON REMOVAL 11/09/2012 HASEEB SÁNCHEZ APRN V25.43 IMPLANON REMOVAL 11/09/2012 ALKA CONDON APRN N V25.43 IMPLANON REMOVAL 11/09/2012 JOAQUÍN NARVAEZ APRN R V25.43 IMPLANON REMOVAL 11/09/2012 HASEEB SÁNCHEZ APRN V25.43 IMPLANON REMOVAL 11/09/2012 HASEEB SÁNCHEZ APRN V25.43 IMPLANON REMOVAL 11/09/2012 ISH SANTANA APRN A V25.43 IMPLANON REMOVAL 11/09/2012 REBEKA LOZANO, PAM Finch V25.43 IMPLANON REMOVAL 11/09/2012 ESTHERMAHAD Rojas APRNIDI A V25.43 IMPLANON REMOVAL 11/10/2012 296.90 MOOD DISORDER 11/10/2012 786.2 COUGH 11/10/2012 296.90 MOOD DISORDER 11/10/2012 786.2 COUGH 11/10/2012 ALKA CONDON APRN N 296.90 MOOD DISORDER 11/10/2012 ALKA CONDON APRN N 786.2 COUGH 11/10/2012 GONZALO COUNTER HAND, HASEEB T 296.90 MOOD DISORDER 11/10/2012 GONZALO IVAN, HASEEB T 786.2 COUGH 11/10/2012 GONZALO IVAN, HASEEB T 296.90 MOOD DISORDER 11/10/2012 GONZALO IVAN, HASEEB T 786.2 COUGH 11/10/2012 GONZALO CHILDRESSN, HASEEB T 296.90 MOOD DISORDER 11/10/2012 GONZALO CHILDRESSN, HASEEB T 786.2 COUGH 11/10/2012 ELLIOT JIMENEZ COUNTER HAND, ALKA N 296.90 MOOD DISORDER 11/10/2012 ZARATEELEANOR JIMENEZ COUNTER HAND, ALKA N 786.2 COUGH 11/10/2012 SOLANGE COUNTER HAND, JOAQUÍN R 296.90 MOOD DISORDER 11/10/2012 SOLANGE COUNTER HAND, JOAQUÍN R 786.2 COUGH 11/10/2012 GONZALO IVAN, HASEEB T 296.90 MOOD DISORDER 11/10/2012 GONZALO IVAN, HASEEB T 786.2 COUGH 11/10/2012 GONZALO IVAN, HASEEB T 296.90 MOOD DISORDER 11/10/2012 HASEEB SÁNCHEZ APRN T 786.2 COUGH 11/10/2012 ESTHER IVAN, ISH A 296.90 MOOD DISORDER 11/10/2012 ESTHER APRN, ISH A 786.2 COUGH 11/10/2012 REBEKA PHD, PAM A 296.90 MOOD DISORDER 11/10/2012 REBEKA PHD, PAM A 786.2 COUGH 11/10/2012 ESTHER APRN, ISH A 296.90 MOOD DISORDER 11/10/2012 ESTHER APRN, ISH A 786.2 COUGH 11/18/2012 616.0 CERVICITIS 11/18/2012 795.02 ABNORMAL PAP - ASCUS-H 11/18/2012 ALKA CONDON APRN N 616.0 CERVICITIS 11/18/2012 ELLIOT JIMENEZ APRN, ALKA N 795.02 ABNORMAL PAP - ASCUS-H 11/18/2012 HASEEB SÁNCHEZ APRN T 616.0 CERVICITIS 11/18/2012 HASEEB SÁNCHEZ APRN 795.02 ABNORMAL PAP - ASCUS-H 11/18/2012 HASEEB SÁNCHEZ APRN T 616.0 CERVICITIS 11/18/2012 HASEEB SÁNCHEZ APRN 795.02 ABNORMAL PAP - ASCUS-H 11/18/2012 HASEEB SÁNCHEZ APRN 616.0 CERVICITIS 11/18/2012 HASEEB SÁNCHEZ APRN T 795.02 ABNORMAL PAP - ASCUS-H 11/18/2012 ELLIOT JIMENEZ APRN, ALKA N 616.0 CERVICITIS 11/18/2012 ZARATEELEANOR JIMENEZ APRN, ALKA N 795.02 ABNORMAL PAP - ASCUS-H 11/18/2012 SOLANGE CHILDRESSN, JOAQUÍN R 616.0 CERVICITIS 11/18/2012 SOLANGE CHILDRESSN, JOAQUÍN R 795.02 ABNORMAL PAP - ASCUS-H 11/18/2012 HASEEB SÁNCHEZ APRN T 616.0 CERVICITIS 11/18/2012 HASEEB SÁNCHEZ APRN T 795.02 ABNORMAL PAP - ASCUS-H 11/18/2012 HASEEB SÁNCHEZ APRN T 616.0 CERVICITIS 11/18/2012 HASEEB SÁNCHEZ APRN T 795.02 ABNORMAL PAP - ASCUS-H 11/18/2012 ESTHER APRN, ISH A 616.0 CERVICITIS 11/18/2012 ESTHER APRN, ISH A 795.02 ABNORMAL PAP - ASCUS-H 11/18/2012 REBEKA PHD, PAM A 616.0 CERVICITIS 11/18/2012 REBEKA PHD, PAM A 795.02 ABNORMAL PAP - ASCUS-H 11/18/2012 ESTHER APRN, ISH A 616.0 CERVICITIS 11/18/2012 ESTHER APRN, ISH A 795.02 ABNORMAL PAP - ASCUS-H 03/24/2013 ALKA CONDON APRN N 461.8 OTHER ACUTE SINUSITIS 03/24/2013 ZARATEALKA WILSON APRN N 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 03/24/2013 HASEEB SÁNCHEZ APRN 461.8 OTHER ACUTE SINUSITIS 03/24/2013 HASEEB SÁNCHEZ APRN 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 03/24/2013 HASEEB SÁNCHEZ APRN 461.8 OTHER ACUTE SINUSITIS 03/24/2013 HASEEB SÁNCHEZ APRN 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 03/24/2013 HASEEB SÁNCHEZ APRN 461.8 OTHER ACUTE SINUSITIS 03/24/2013 HASEEB SÁNCHEZ APRN 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 03/24/2013 ZARATE CASHERO COUNTER HAND, ALKA N 461.8 OTHER ACUTE SINUSITIS 03/24/2013 ZARATE CASHERO COUNTER HAND, ALKA N 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 03/24/2013 SOLANGE COUNTER HAND, JOAQUÍN R 461.8 OTHER ACUTE SINUSITIS 03/24/2013 SOLANGE CHILDRESSN, JOAQUÍN R 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 03/24/2013 HASEEB SÁNCHEZ APRN T 461.8 OTHER ACUTE SINUSITIS 03/24/2013 HASEEB SÁNCHEZ APRN T 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 03/24/2013 HASEEB SÁNCHEZ APRN T 461.8 OTHER ACUTE SINUSITIS 03/24/2013 HASEEB SÁNCHEZ APRN T 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 03/24/2013 IHS SANTANA APRN A 461.8 OTHER ACUTE SINUSITIS 03/24/2013 ISH SANTANA APRN A 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 03/24/2013 REBEKA LOZANO, PAM A 461.8 OTHER ACUTE SINUSITIS 03/24/2013 REBEKA LOZANO, PAM A 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 03/24/2013 ISH SANTANA APRN A 461.8 OTHER ACUTE SINUSITIS 03/24/2013 ISH SANTANA APRN A 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 04/11/2013 HASEEB SÁNCHEZ APRN T 706.2 SEBACEOUS CYST 04/11/2013 HASEEB SÁNCHEZ APRN 706.2 SEBACEOUS CYST 04/11/2013 HASEEB SÁNCHEZ APRN T 706.2 SEBACEOUS CYST 04/11/2013 ELLIOT JIMENEZ APRN, ALKA N 706.2 SEBACEOUS CYST 04/11/2013 SOLANGE IVAN, JOAQUÍN R 706.2 SEBACEOUS CYST 04/11/2013 HASEEB SÁNCHEZ APRN T 706.2 SEBACEOUS CYST 04/11/2013 HASEEB SÁNCHEZ APRN T 706.2 SEBACEOUS CYST 04/11/2013 MAHAD SANTANA APRNIDI A 706.2 SEBACEOUS CYST 04/11/2013 REBEKA LOZANO, PAM A 706.2 SEBACEOUS CYST 04/11/2013 ESTHER IVAN ISH A 706.2 SEBACEOUS CYST 04/15/2013 SHIRA GONZALEZ, AMBROCIO A Ot 558.9 NONINF GASTROENTERIT NEC 04/15/2013 SHIRA GONZALEZ, AMBROCIO A Ot 787.91 DIARRHEA 04/26/2013 GONZALO IVAN, HASEEB T 214.9 LIPOMA 04/26/2013 GONZALO IVAN, HASEEB T 214.9 LIPOMA 04/26/2013 ELLIOT JIMENEZ APRN, ALKA N 214.9 LIPOMA 04/26/2013 JOAQUÍN NARVAEZ APRN R 214.9 LIPOMA 04/26/2013 GONZALO IVAN, HASEEB T 214.9 LIPOMA 04/26/2013 GONZALO IVAN, HASEEB T 214.9 LIPOMA 04/26/2013 ESTHER IVAN, ISH A 214.9 LIPOMA 04/26/2013 REBEKA LOZANO, PAM Finch 214.9 LIPOMA 04/26/2013 ESTHER IVAN, ISH A 214.9 LIPOMA 05/04/2013 HASEEB SÁNCHEZ APRN T V58.32 SUTURE REMOVAL 05/04/2013 ALKA CONDON APRN N V58.32 SUTURE REMOVAL 05/04/2013 FLORENCIO NARVAEZ APRNINA R V58.32 SUTURE REMOVAL 05/04/2013 HASEEB SÁNCHEZ APRN T V58.32 SUTURE REMOVAL 05/04/2013 GONZALO IVAN HASEEB T V58.32 SUTURE REMOVAL 05/04/2013 ESTHER IVAN, ISH A V58.32 SUTURE REMOVAL 05/04/2013 REBEKA LOZANO, PAM Finch V58.32 SUTURE REMOVAL 05/04/2013 ESTHER IVAN, ISH A V58.32 SUTURE REMOVAL 05/17/2013 ALKA CONDON APRN N 460 ACUTE NASOPHARYNGITIS (COMMON COLD) 05/17/2013 JOAQUÍN NARVAEZ APRN R 460 ACUTE NASOPHARYNGITIS (COMMON COLD) 05/17/2013 HASEEB SÁNCHEZ APRN 460 ACUTE NASOPHARYNGITIS (COMMON COLD) 05/17/2013 HASEEB SÁNCHEZ APRN 460 ACUTE NASOPHARYNGITIS (COMMON COLD) 05/17/2013 ESTHER IVAN, ISH A 460 ACUTE NASOPHARYNGITIS (COMMON COLD) 05/17/2013 PAM STALEY PHD 460 ACUTE NASOPHARYNGITIS (COMMON COLD) 05/17/2013 ISH SANTANA APRN A 460 ACUTE NASOPHARYNGITIS (COMMON COLD) 08/31/2013 JOAQUÍN NARVAEZ APRN R 719.42 PAIN IN JOINT INVOLVING UPPER ARM 08/31/2013 JOAQUÍN NARVAEZ APRN R 723.1 CERVICALGIA 08/31/2013 HASEEB SÁNCHEZ APRN 719.42 PAIN IN JOINT INVOLVING UPPER ARM 08/31/2013 HASEEB SÁNCHEZ APRN 723.1 CERVICALGIA 08/31/2013 HASEEB SÁNCHEZ APRN 719.42 PAIN IN JOINT INVOLVING UPPER ARM 08/31/2013 HASEEB SÁNCHEZ APRN 723.1 CERVICALGIA 08/31/2013 ISH SANTANA APRN A 719.42 PAIN IN JOINT INVOLVING UPPER ARM 08/31/2013 ISH SANTANA APRN A 723.1 CERVICALGIA 08/31/2013 PAM STALEY PHD 719.42 PAIN IN JOINT INVOLVING UPPER ARM 08/31/2013 PAM STALEY PHD 723.1 CERVICALGIA 08/31/2013 ISH SANTANA APRN A 719.42 PAIN IN JOINT INVOLVING UPPER ARM 08/31/2013 ISH SANTANA APRN A 723.1 CERVICALGIA 10/26/2013 ISH SANTANA APRN V65.42 COUNSELING - SMOKING CESSATION 10/26/2013 ISH SANTANA APRN V72.31 HEAD ESTHETICIAN EXAM, ROUTINE 10/26/2013 ISH SANTANA APRN V74.5 STD SCREEN 10/26/2013 ISH SANTANA APRN V76.10 BREAST CANCER SCREENING 10/26/2013 PAM STALEY PHD V65.42 COUNSELING - SMOKING CESSATION 10/26/2013 PAM STALEY PHD V72.31 HEAD ESTHETICIAN EXAM, ROUTINE 10/26/2013 PAM STALEY PHD V74.5 STD SCREEN 10/26/2013 PAM STALEY PHD V76.10 BREAST CANCER SCREENING 10/26/2013 ISH SANTANA APRN A V65.42 COUNSELING - SMOKING CESSATION 10/26/2013 ISH SANTANA APRN A V72.31 HEAD ESTHETICIAN EXAM, ROUTINE 10/26/2013 ISH SANTANA APRN A V74.5 STD SCREEN 10/26/2013 ISH SATNANA APRN V76.10 BREAST CANCER SCREENING 05/24/2014 REBEKA PHD, PAM A 625.9 PELVIC PAIN 05/24/2014 ESTHER COUNTER HAND, ISH A 625.9 PELVIC PAIN 06/22/2014 REBEKA PHD, PAM A 300.02 AN GEN ANXIETY 06/22/2014 REBEKA PHD, PAM A 300.4 MO DYSTHYMIC DISORDER 06/22/2014 ESTHER COUNTER HAND, ISH A 300.02 AN GEN ANXIETY 06/22/2014 ESTHER COUNTER HAND, ISH A 300.4 MO DYSTHYMIC DISORDER 08/03/2014 ESTHER, ISH A COUNTER HAND Ot 620.2 08/03/2014 ISH SANTANA A COUNTER HAND Ot 620.2 11/15/2014 ISH SANTANA A COUNTER HAND Ot 620.2 11/20/2014 YOLANDA GONZALEZ, IVELISSE Matthews Ot 643.03 MILD HYPEREMESIS-ANTEPAR 11/20/2014 YOLANDA GONZALEZ, IVELISSE Matthews Ot 787.03 VOMITING ALONE 12/19/2014 MAICOL BEE DO Ot 643.03 MILD HYPEREMESIS-ANTEPAR 01/30/2015 ISH SANTANA A COUNTER HAND Ot V22.1 05/25/2017 ISH SANTANA COUNTER HAND Ot 620.2 OVARIAN CYST NEC/NOS 05/25/2017 ISH SANTANA COUNTER HAND Ot V22.1 SUPERVIS OTH NORMAL PREG 05/26/2017 GABINO GONZALEZ, RANDOLPH Owens Ot M54.2 CERVICALGIA 05/26/2017 GABINO GONZALEZ, RANDOLPH Owens Ot M54.6 PAIN IN THORACIC SPINE 06/10/2017 RANDOLPH LLOYD MD Ot M54.2 CERVICALGIA 06/10/2017 RANDOLPH LLOYD MD Ot M54.6 PAIN IN THORACIC SPINE 08/14/2017 ZHAO GONZALEZ, TERRY Conley Ot F17.200 NICOTINE DEPENDENCE, UNSPECIFIED, UNCOMP 08/14/2017 ZHAO GONZALEZ, TERRY Conley Ot N83.201 UNSPECIFIED OVARIAN CYST, RIGHT SIDE 08/14/2017 TERRY CHURCHILL MD Ot R10.32 LEFT LOWER QUADRANT PAIN 08/17/2017 TERRY CHURCHILL MD Ot F17.200 NICOTINE DEPENDENCE, UNSPECIFIED, UNCOMP 08/17/2017 TERRY CHURCHILL MD J Ot N83.201 UNSPECIFIED OVARIAN CYST, RIGHT SIDE 08/17/2017 ZHAO GONZALEZ, TERRY Conley Ot R10.32 LEFT LOWER QUADRANT PAIN Procedures Code [place] [address] UA W/ CULTURE IF INDICATED 05/20/2012 85485 CULTURE URINE 05/20/2012 88262 IMPLANON REMOVAL 11/11/2012 93665 URINE TEST (IN- HOUSE) 11/18/2012 53611 COLP W/ BX & ECC 11/18/2012 95307 STREP A (IN-HOUSE) 03/24/2013 05226 EXCISION BENIGN LESION 0.6- 1 cm (spcify location in [facility] description) 04/26/2013 35861 GC/CHLAM PROBE ([facility]) 10/26/2013 81131 PAP SMEAR 10/26/2013 Q0091 PAP SMEAR OBTAIN SMEAR 10/26/2013 10836 TRICHOMONAS (IN-HOUSE) 10/26/2013 55107 PSYCH DIAGNOSTIC EVALUATION 06/22/2014 78244 UA W/ CULTURE IF INDICATED 07/05/2014 73801 TEST, URINE (IN- HOUSE) 07/05/2014 41554 US PELVIC COMPL (REFLEX CPT - 45307) 07/05/2014 Results Test Result Range Pap Lb, HPV-hr - 01/24/16 11:00 HPV, high-risk Positive Negative DIAGNOSIS: Comment Specimen adequacy: Comment Clinician provided ICD10: Comment Performed by: Comment Electronically signed by: Comment . . Note: Comment Complete blood count (CBC) with automated white blood cell (WBC) differential - 08/14/17 02:00 Blood leukocytes automated count (number/volume) 8.8 10*3/uL 4.3-11.0 Blood erythrocytes automated count (number/volume) 4.59 10*6/uL 4.35-5.85 Venous blood hemoglobin measurement (mass/volume) 14.2 g/dL 11.5-16.0 Blood hematocrit (volume fraction) 40 % 35-52 Automated erythrocyte mean corpuscular volume 87 [foz_us] 80-99 Automated erythrocyte mean corpuscular hemoglobin (mass per erythrocyte) 31 pg 25-34 Automated erythrocyte mean corpuscular hemoglobin concentration measurement ( mass/volume) 36 g/dL 32-36 Automated erythrocyte distribution width ratio 12.5 % 10.0-14.5 Automated blood platelet count (count/volume) 229 10*3/uL 130-400 Automated blood platelet mean volume measurement 9.3 [foz_us] 7.4-10.4 Automated blood neutrophils/100 leukocytes 51 % 42-75 Automated blood lymphocytes/100 leukocytes 38 % 12-44 Blood monocytes/100 leukocytes 9 % 0-12 Automated blood eosinophils/100 leukocytes 2 % 0-10 Automated blood basophils/100 leukocytes 0 % 0-10 Blood neutrophils automated count (number/volume) 4.4 10*3 1.8-7.8 Blood lymphocytes automated count (number/volume) 3.3 10*3 1.0-4.0 Blood monocytes automated count (number/volume) 0.8 10*3 0.0-1.0 Automated eosinophil count 0.2 10*3/uL 0.0-0.3 Automated blood basophil count (count/volume) 0.0 10*3/uL 0.0-0.1 Complete urinalysis with reflex to culture - 08/14/17 02:00 Urine color determination YELLOW NRG Urine clarity determination CLEAR NRG Urine pH measurement by test strip 5 5-9 Specific gravity of urine by test strip 1.025 1.016- 1.022 Urine protein assay by test strip, semi-quantitative 2+ NEGATIVE Urine glucose detection by automated test strip NEGATIVE NEGATIVE Erythrocytes detection in urine sediment by light microscopy NEGATIVE NEGATIVE Urine ketones detection by automated test strip NEGATIVE NEGATIVE Urine nitrite detection by test strip NEGATIVE NEGATIVE Urine total bilirubin detection by test strip NEGATIVE NEGATIVE Urine urobilinogen measurement by automated test strip (mass/volume) NORMAL NORMAL Urine leukocyte esterase detection by dipstick 1+ NEGATIVE Automated urine sediment erythrocyte count by microscopy (number/high power field) NONE NRG Automated urine sediment leukocyte count by microscopy (number/high power field ) [HPF] NRG Bacteria detection in urine sediment by light microscopy FEW NRG Squamous epithelial cells detection in urine sediment by light microscopy 2-5 NRG Crystals detection in urine sediment by light microscopy NONE NRG Casts detection in urine sediment by light microscopy NONE NRG Mucus detection in urine sediment by light microscopy MODERATE NRG Complete urinalysis with reflex to culture NO NRG Other elements identification in urine sediment by light microscopy FEW SPERM NRG Urine drug screening test - 08/14/17 02:00 Urine phencyclidine detection by screening method NEGATIVE NEGATIVE Urine benzodiazepines detection by screening method NEGATIVE NEGATIVE Urine cocaine detection NEGATIVE NEGATIVE Urine amphetamines detection by screening method NEGATIVE NEGATIVE Urine methamphetamine detection by screening method NEGATIVE NEGATIVE Urine cannabinoids detection by screening method POSITIVE NEGATIVE Urine opiates detection by screening method NEGATIVE NEGATIVE Urine barbiturates detection NEGATIVE NEGATIVE Screening urine tricyclic antidepressants detection NEGATIVE NEGATIVE Urine methadone detection by screening method NEGATIVE NEGATIVE Urine oxycodone detection NEGATIVE NEGATIVE Urine propoxyphene detection NEGATIVE NEGATIVE Comprehensive metabolic panel - 08/14/17 02:00 Serum or plasma sodium measurement (moles/volume) 140 mmol/L 135-145 Serum or plasma potassium measurement (moles/volume) 3.8 mmol/L 3.6-5.0 Serum or plasma chloride measurement (moles/volume) 109 mmol/L 98-107 Carbon dioxide 21 mmol/L 21-32 Serum or plasma anion gap determination (moles/volume) 10 mmol/L 5-14 Serum or plasma urea nitrogen measurement (mass/volume) 16 mg/dL 7-18 Serum or plasma creatinine measurement (mass/volume) 0.83 mg/dL 0.60-1.30 Serum or plasma urea nitrogen/creatinine mass ratio 19 NRG Serum or plasma creatinine measurement with calculation of estimated glomerular filtration rate > NRG Serum or plasma glucose measurement (mass/volume) 108 mg/dL 70-105 Serum or plasma calcium measurement (mass/volume) 9.4 mg/dL 8.5-10.1 Serum or plasma total bilirubin measurement (mass/volume) 0.4 mg/dL 0.1-1.0 Serum or plasma alkaline phosphatase measurement (enzymatic activity/volume) 47 U/L 40-136 Serum or plasma aspartate aminotransferase measurement (enzymatic activity/ volume) 16 U/L 5-34 Serum or plasma alanine aminotransferase measurement (enzymatic activity/volume ) 18 U/L 0-55 Serum or plasma protein measurement (mass/volume) 6.9 g/dL 6.4-8.2 Serum or plasma albumin measurement (mass/volume) 4.2 g/dL 3.2-4.5 Magnesium - 08/14/17 02:00 Magnesium 2.0 mg/dL 1.8-2.4 Serum or plasma C reactive protein measurement (mass/volume) - 08/14/17 02:00 Serum or plasma C reactive protein measurement (mass/volume) 0.03 mg /dL 0.00-0.50 Encounters ACCT No. Visit Date/Time Discharge Status Pt. Type Provider Facility Loc./Unit Complaint [id number] 07/05/2014 11:08:00 07/05/2014 23:59:59 CLS Outpatient ISH SANTANA APRN [id number] 06/22/2014 07:53:00 06/22/2014 23:59:59 CLS Outpatient PAM STALEY PHD [id number] 10/26/2013 13:04:00 10/26/2013 23:59:59 CLS Outpatient ISH SANTANA APRN [id number] 10/03/2013 14:42:00 10/03/2013 23:59:59 CLS Outpatient HASEEB SÁNCHEZ APRN [id number] 09/27/2013 16:43:00 09/27/2013 23:59:59 CLS Outpatient HASEEB SÁNCHEZ APRN [id number] 08/31/2013 15:45:00 08/31/2013 23:59:59 CLS Outpatient JOAQUÍN NARVAEZ APRN Danae [id number] 05/17/2013 14:37:00 05/17/2013 23:59:59 CLS Outpatient ALKA CONDON APRN Bob [id number] 05/04/2013 16:25:00 05/04/2013 23:59:59 CLS Outpatient HASEEB SÁNCHEZ APRN [id number] 04/26/2013 16:24:00 04/26/2013 23:59:59 CLS Outpatient HASEEB SÁNCHEZ APRN [id number] 04/11/2013 09:43:00 04/11/2013 23:59:59 CLS Outpatient HASEEB SÁNCHEZ APRN [id number] 03/24/2013 14:08:00 03/24/2013 23:59:59 CLS Outpatient LAKA CONDON APRN Bob [id number] 06/04/2012 08:33:00 06/04/2012 23:59:59 CLS Outpatient [id number] 05/20/2012 09:33:00 05/20/2012 23:59:59 CLS Outpatient JORDY ELDER DO [id number] 05/20/2012 09:33:00 05/20/2012 23:59:59 CLS Outpatient JORDY ELDER DO [id number] 11/18/2012 13:27:00 Document Registration [id number] 11/10/2012 15:29:00 Document Registration [id number] 10/26/2012 15:12:00 Document Registration [id number] 02/05/2016 05:05:00 Document Registration [id number] 08/14/2017 01:50:00 08/14/2017 03:53:00 DIS Emergency ZHAO GONZALEZ, TERRY Conley [facility] ER SEVERE ABD PAIN [id number] 05/25/2017 10:24:00 05/25/2017 23:59:59 CLS Outpatient GABINO GONZALEZ, RANDOLPH Owens [facility] RAD M54.2 [id number] 12/19/2014 05:23:00 12/19/2014 06:40:00 DIS Emergency ROHIT DO, MAICOL K [facility] ER VOMITING 12 WKS PREG [id number] 11/20/2014 08:25:00 11/20/2014 12:37:00 DIS Emergency YOLANDA GONZALEZ, IVELISSE Matthews [facility] ER VOMITING 7 WKS PREG [id number] 11/15/2014 11:56:00 11/15/2014 23:59:59 CLS Outpatient ISH SANTANA COUNTER HAND [facility] RAD DATING [id number] 07/13/2014 10:14:00 07/13/2014 23:59:59 CLS Outpatient ISH SANTANA COUNTER HAND [facility] RAD PELVIC PAIN [id number] 04/15/2013 04:39:00 04/15/2013 05:48:00 DIS Emergency SHIRA GONZALEZ, AMBROCIO Finch [facility] ER VOMITING,FEVER,DIARRHEA, CRAMPING [id number] 11/03/2012 12:31:00 11/03/2012 23:59:59 CLS Outpatient [id number] 07/12/2014 14:36:00 Document Registration [id number] 05/18/2012 15:37:00 Document Registration [id number] 07/03/2011 14:55:00 Document Registration [id number] 10/19/2017 12:45:00 10/19/2017 23:59:59 CLS Outpatient HASEEB ÁSNCHEZ APRN [facility]
[2018-01-09] MEDS ORDERED: BUPR100T15 (10:08)
[2018-01-09] MEDS ORDERED: ORPHENADRINE 60 MG/2 ML (NORFLEX) AMP IM STA (10:21)
[2018-01-09] MEDS ORDERED: KETOROLAC 60 MG/2 ML VIAL IM STA (10:21)
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
[2018-01-09] MEDS ORDERED: CYCL10TA9 PO (10:51)
[2018-01-09 11:11] VITALS: BP 109/74
== END 2018-01-09 11:11 | disposition home or self-care (01) ==
LOC: EDUNIT# 09:47 → ER 09:48
DX: S16.1XXA Strain of muscle, fascia and tendon at neck level, initial encounter (principal); S29.012A Strain of muscle and tendon of back wall of thorax, initial encounter; F17.200 Nicotine dependence, unspecified, uncomplicated; Z87.448 Personal history of other diseases of urinary system; V40.6XXA Car passenger injured in collision with pedestrian or animal in traffic accident, initial encounter
CPT/HCPCS: 99284

== ENCOUNTER → 2018-01-27 | Outpatient (CLI) | payer MEDICAID, OTHER ==
[~2018-01-27] MED LIST changes: +BUPR100T15; +CYCL10TA9 PO
--- NOTE | 2018-01-27 12:36 | Diagnostic Imaging Report ---
PROCEDURE: US Non-ob pelvis comp/trans. TECHNIQUE: Multiple realtime grayscale images were obtained of the pelvis in various projections endovaginally. Transabdominal imaging was also performed. INDICATION: Pelvic pain. The uterus measures 6.9 x 4.3 x 3.4 cm. The endometrium is 6 mm in thickness. No myometrial mass is seen. The right ovary measures 2.2 x 2.4 x 1.6 cm and the left ovary measures 3.8 x 2.1 x 1.6 cm. Both ovaries contain follicles. There is blood flow to both ovaries. No adnexal mass or free fluid is seen. IMPRESSION: Unremarkable pelvic ultrasound. Dictated by: Dictated on workstation # [id number]
== END ==
LOC: RAD 10:15
PROVIDERS: ATTEND Nurse Practitioner Primary Care
DX: R10.2 Pelvic and perineal pain (principal)
CPT/HCPCS: 76830; 76856

== ENCOUNTER 2019-02-27 15:39 | Emergency (ER) | payer MEDICAID ==
[~2019-02-27] VITALS: Ht 190 cm; Wt 98.5 kg
[2019-02-27] MEDS ORDERED: HYDROcodone/APAP 7.5 MG/325 MG (LORTAB, LORCET PLUS) TABLET PO STA (17:58)
--- NOTE | 2019-02-27 17:58 | ED EENT ---
History of Present Illness General Chief Complaint: Ear Problems Stated Complaint: BILAT EAR PAIN Nursing Triage Note: Patient ambulatory to ER triage room with complaint of bilateral ear pain x 2 days. Patient states the pain radiates into the left jaw. She was seen at [facility] on Thursday and was given Cipro otic suspension drops but states her ears are feeling worse. She is 33 and 1/2 weeks with a due date of Mar. Source: patient, spouse Exam Limitations: no limitations History of Present Illness Date Seen by Provider: Feb 27, 2019 Time Seen by Provider: 17:44 Initial Comments 29-year-old female patient presents with complaints of bilateral ear pain 2 days. Patient was seen at [facility] walking [facility] on Thursday and given Cipro otic drops without improvement in symptoms. Patient is 30 weeks . Denies improvement with Tylenol. Timing/Duration: abrupt Location: ear (R), ear (L) Prearrival Treatment: over the counter meds (improvement with Tylenol), presc ription meds Modifying Factors: Worse With Other (worse with palpation of the left ear) Allergies and Home Medications Allergies Coded Allergies: No Known Drug Allergies (Unverified , 07/03/11) Home Medications Cefdinir 300 Mg Capsule, 300 MG PO BID Prescribed by: FERNANDO NARAYAN on 02/27/19 181 Cyclobenzaprine HCl 10 Mg Tablet, 10 MG PO Q8H PRN for SPASMS Prescribed by: BARNEY OCAMPO on 01/09/18 1051 Hydrocodone/Acetaminophen 1 Each Tablet, 1 TAB PO Q4H PRN for pain Prescribed by: FERNANDO NARAYAN on 02/27/19 181 Patient Home Medication List Home Medication List Reviewed: Yes Review of Systems Review of Systems Constitutional: No chills, No fever; malaise Eyes: No Symptoms Reported Ears: Denies Dizziness; Pain; Denies Tinnitus, Denies Bloody Discharge, Denies Clear Discharge, Denies Purulent Discharge, Denies Serosanguinous Discharge Nose: congestion; denies pain, denies bloody discharge, denies clear discharge, denies purulent discharge, denies serosanguinous discharge Mouth: no symptoms reported Throat: pain; denies swelling, denies discharge, denies neck stiffness, denies hoarse, denies aphonia, denies muffled; painful swallowing; denies difficulty with fluids Respiratory: cough; No phlegm, No short of breath, No stridor, No wheezing Cardiovascular: no symptoms reported Gastrointestinal: no symptoms reported : Yes Expected Date of Delivery: Apr 11, 2019 Musculoskeletal: no symptoms reported Skin: no symptoms reported Neurological: Headache All Other Systems Reviewed Negative Unless Noted: Yes (Negative excepted noted.) Past Qyurxun-Nqwbfx-Vpfvbn Hx Past Med/Social Hx: Reviewed Nursing Past Med/Soc Hx Patient Social History Alcohol Use: Denies Use Recreational Drug Use: No Smoking Status: Former Smoker Type Used: Cigarettes 2nd Hand Smoke Exposure: No Recent Foreign Travel: No Contact w/Someone Who Travel: No Recent Infectious Disease Expo: No Recent Hopitalizations: No Physical Abuse: No Sexual Abuse: No Mistreated: No Fear: No Immunizations Up To Date Tetanus Booster (TDap): Unknown PED Vaccines UTD: Yes Seasonal Allergies Seasonal Allergies: No Past Medical History Surgeries: Yes (WISDOM TEETH) Respiratory: No Cardiac: No Neurological: No : Yes (due date mar) Expected Date of Delivery: Apr 11, 2019 Reproductive Disorders: No Female Reproductive Disorders: Ovarian Cyst Sexually Transmitted Disease: No Genitourinary: No Gastrointestinal: No Musculoskeletal: No Endocrine: No HEENT: No Cancer: No Psychosocial: No Integumentary: No Blood Disorders: No Family Medical History Reviewed Nursing Family Hx No Pertinent Family Hx Physical Exam Vital Signs Vital Signs - First Documented 02/27/19 15:59 Temp 37.2 Pulse 107 Resp 18 B/P (MAP) 101/73 (82) Pulse Ox 100 O2 Delivery Room Air Height, Weight, BMI Height: 6'3.00" Weight: 198lbs. oz. 89.483323sy; 27.00 BMI Method:Stated General Appearance: WD/WN, mild distress (tearful) Eyes: bilateral eye normal inspection, bilateral eye PERRL, bilateral eye EOMI Ears: bilateral ear auricle normal, bilateral ear swelling (bilateral external ear canal swollen), bilateral ear tenderness (with movement of the bilateral external ears) Nose: other (nasal congestion with nasal mucosal swelling) Mouth/Throat: normal mouth inspection; No mandibular swelling, No maxillary swelling; other (pharyngeal erythema) Neck: full range of motion, supple, lymphadenopathy (R) (tender to palpation), lymphadenopathy (L) (tender to palpation) Cardiovascular: regular rate, rhythm, no edema, no murmur Respiratory: lungs clear, normal breath sounds, no respiratory distress, no accessory muscle use Neurologic/Psychiatric: alert, oriented x 3, other (tearful) Skin: normal color, warm/dry Progress/Results/Core Measures Results/Orders My Orders Orders - FERNANDO NARAYAN Hydrocodone/Apap 7.5/325 Tab (Lortab 7. (02/27/19 17:58) Ceftriaxone For Im Use (Rocephin For Im (02/27/19 18:00) Lidocaine 1% Inj 20 Ml (Xylocaine 1% Inj (02/27/19 18:00) Medications Given in ED Current Medications Medications Dose Ordered Sig/Rubia Route Start Time Stop Time Status Last Admin Dose Admin Ceftriaxone Sodium 1,000 mg ONCE ONCE IM 02/27/19 18:00 02/27/19 18:01 DC 02/27/19 18:12 1,000 MG Lidocaine HCl 2.1 ml ONCE ONCE INJ 02/27/19 18:00 02/27/19 18:01 DC 02/27/19 18:13 2.1 ML Vital Signs/I&O 02/27/19 02/27/19 15:59 18:30 Temp 37.2 37.0 Pulse 107 97 Resp 18 18 B/P (MAP) 101/73 (82) 103/75 (82) Pulse Ox 100 99 O2 Delivery Room Air Blood Pressure Mean: 82 POS Departure Communication (Admissions) patient seen and evaluated. patient given 1 gram of rocephin IM and lortab 7.5mg po x1 dose. proceed with [facility] to home with f/u as an outpt with her OB. patient to return to the ED for worsened symptoms or any other concerns. Impression Primary Impression: Otitis externa Qualified Codes: H60.503 - Unspecified acute noninfective otitis externa, bilateral Additional Impression: Upper respiratory infection Qualified Codes: J06.9 - Acute upper respiratory infection, unspecified Disposition: HOME, SELF-CARE Condition: Improved Departure-Patient Inst. Decision time for Depature: 18:12 Referrals: RANDOLPH LLOYD MD (PCP/Family) Primary Care Physician Patient Instructions: Bacterial Upper Respiratory Infection, Adult (DC), Outer Ear Infection Add. Discharge Instructions: All discharge instructions reviewed with patient and/or family. Voiced understanding. Medications as instructed. Continue the eardrops as prescribed. Tylenol or prescribed pain medication as directed for ear pain. Follow-up with your day care center director for recheck as an outpatient tomorrow or Thursday. Call tomorrow morning for an appointment time. Return to the emergency department for worsened symptoms or any other concerns. Scripts Hydrocodone/Acetaminophen (Hydrocodone-Acetamin 5-325 mg) 1 Each Tablet 1 TAB PO Q4H PRN for pain for 7 Days, #14 TAB 0 Refills Prov: FERNANDO NARAYAN 02/27/19 Cefdinir (Cefdinir) 300 Mg Capsule 300 MG PO BID, #14 CAP 0 Refills Prov: FERNANDO NARAYAN 02/27/19 FERNANDO NARAYAN Feb 27, 2019 17:57 POS
[2019-02-27] MEDS ORDERED: cefTRIAXone 1,000 MG/2.86 ml vial (IM ONLY) IM ONE (18:00)
[2019-02-27] MEDS ORDERED: LIDOCAINE 1% INJ 20 ML 20 ML VIAL INJ ONE (18:00)
[2019-02-27] MEDS ORDERED: HYDR-3812 PO (18:16)
[2019-02-27] MEDS ORDERED: CEFD300C3 PO (18:16)
[2019-02-27 18:30] VITALS: BP 103/75
== END 2019-02-27 18:33 | disposition home or self-care (01) ==
LOC: EDUNIT# 15:39 → ER 15:41
DX: O99.89 Other specified diseases and conditions complicating pregnancy, childbirth and the puerperium (principal); H60.93 Unspecified otitis externa, bilateral; O99.513 Diseases of the respiratory system complicating pregnancy, third trimester; J06.9 Acute upper respiratory infection, unspecified; Z87.891 Personal history of nicotine dependence; Z3A.33 33 weeks gestation of pregnancy
CPT/HCPCS: 96372; 99284

== ENCOUNTER 2019-05-01 11:07 | Emergency (ER) | payer MEDICAID ==
[~2019-05-01] VITALS: Ht 190 cm; Wt 89.6 kg
[~2019-05-01 11:07] MED LIST changes: +CEFD300C3 PO; +HYDR-3812 PO
--- NOTE | 2019-05-01 11:43 | NUR ---
TO ROOM NO CHANGE FROM TRIAGE.
[2019-05-01 11:59] LABS: BILIRUBIN,URINE NEGATIVE (NEGATIVE); CLARITY,URINE CLEAR; COLOR,URINE YELLOW; GLUCOSE, URINE (UA) NEGATIVE (NEGATIVE); KETONES,URINE NEGATIVE (NEGATIVE); LEUKOCYTE ESTERASE ,URINE NEGATIVE (NEGATIVE); NITRITE,URINE NEGATIVE (NEGATIVE); PROTEIN,URINE NEGATIVE (NEGATIVE)
--- NOTE | 2019-05-01 11:59 | ED GU-Female ---
General Chief Complaint: Abdominal/GI Problems Stated Complaint: ABD PAIN/DIZZINESS Nursing Triage Note: C/O ABDOMEN CRAMPING STARTING THIS MORNING. DENIES N/V/D. REPORTS GENERALIZED WEAKNESS AND DIZZINESS. 2 WEEKS Nursing Sepsis Screen: No Definite Risk Source: patient History of Present Illness Date Seen by Provider: May 01, 2019 Time Seen by Provider: 11:38 Initial Comments PT ARRIVES VIA POV FROM HOME PT DELIVERED 04/05/[address] [facility] [address] HEARD. FULL TERM, INDUCED WITH PITOCIN, VAGINAL DELIVERY NO COMPLICATIONS DURING , DELIVERY OR AFTER JOYCE PT IS PT IS STILL HAVING A SMALL AMOUNT OF BLEEDING--IS AVERAGING 2-3 PADS A DAY, IS NOT PASSING ANY CLOTS, AND HAS ONLY HAD ONE PAD ON TODAY AND BLEEDING HAS STOPPED AT THIS TIME PT HAS NOT HAD ANY POST- VISITS, HER 6 WEEK POST VISIT IS THE END OF THIS MONTH PT STATES THAT ABOUT AN HOUR AGO, SHE BEGAN HAVING SOME LOWER ABDOMINAL CRAMPING AND GOT LIGHTHEADED. THESE SYMPTOMS RESOLVED ON THE WAY HERE. NO FEVER NO NAUSEA/VOMITING/DIARRHEA NO URINARY SYMPTOMS PT IS AB 2--ALL NORMAL VAGINAL DELIVERIES PT STATES THAT HER 2 OLDER CHILDREN TESTED + FOR INFLUENZA B THIS WEEK, AND PT DOES NOT HAVE ANY SYMPTOMS AT ALL, BUT SHE WAS PLACED ON TAMIFLU FOR PROPHYLAXIS DUE TO THE IN THE HOME. PCP: DR. Rickey LLOYD LEAD RELAY TESTER: DR. HEARD AT [facility] Allergies and Home Medications Allergies Coded Allergies: No Known Drug Allergies (Unverified , 07/03/11) Home Medications Cefdinir 300 Mg Capsule, 300 MG PO BID Prescribed by: FERNANDO NARAYAN on 02/27/191815 Cyclobenzaprine HCl 10 Mg Tablet, 10 MG PO Q8H PRN for SPASMS Prescribed by: BARNEY OCAMPO on 01/09/18 1051 Hydrocodone/Acetaminophen 1 Each Tablet, 1 TAB PO Q4H PRN for pain Prescribed by: FERNANDO NARAYAN on 02/27/191815 Review of Systems Review of Systems Constitutional: see HPI; No chills, No diaphoresis; dizziness; No fever, No malaise, No weakness EENTM: no symptoms reported; No ear pain, No nose congestion, No throat pain Respiratory: no symptoms reported; No cough, No short of breath, No wheezing Cardiovascular: no symptoms reported; No chest pain, No edema, No palpitations, No syncope Gastrointestinal: see HPI, abdominal pain (LOW ABDOMINAL CRAMPING); No constipation, No diarrhea, No loss of appetite, No nausea, No vomiting Genitourinary: see HPI : No Musculoskeletal: no symptoms reported; No back pain Skin: no symptoms reported Psychiatric/Neurological: No Symptoms Reported Endocrine: No Symptoms Reported Hematologic/Lymphatic: No Symptoms Reported Past Mcjmxsv-Aopvql-Mmikpa Hx Past Med/Social Hx: Reviewed and Corrections made Patient Social History Alcohol Use: Denies Use Recreational Drug Use: No Smoking Status: Current Everyday Smoker (1/2 PPD) Type Used: Cigarettes (1/2 PPD) 2nd Hand Smoke Exposure: No Recent Foreign Travel: No Contact w/Someone Who Travel: No Recent Infectious Disease Expo: No Recent Hopitalizations: No Immunizations Up To Date Tetanus Booster (TDap): Unknown PED Vaccines UTD: Yes Seasonal Allergies Seasonal Allergies: No Past Medical History Surgeries: Yes (WISDOM TEETH) Respiratory: No Cardiac: No Neurological: No : No Hx : 5 Hx Para: 3 Hx Total # of Abortions (Sp): 2 Reproductive Disorders: No Female Reproductive Disorders: Ovarian Cyst Sexually Transmitted Disease: No Genitourinary: No Gastrointestinal: No Musculoskeletal: No Endocrine: No HEENT: No Cancer: No Psychosocial: No Integumentary: No Blood Disorders: No Family Medical History No Pertinent Family Hx Physical Exam Vital Signs Vital Signs - First Documented 05/01/19 11:14 Temp 37.0 Pulse 74 Resp 18 B/P (MAP) 100/68 (79) Pulse Ox 98 Capillary Refill : Less Than 3 Seconds Height, Weight, BMI Height: 6'3.00" Weight: 198lbs. oz. 89.349709si; 24.00 BMI Method:Stated General Appearance: WD/WN, no apparent distress, other (SMILING, TEXTING/PLAYING ON PHONE, WALKS UPRIGHT AND MOVES WITHOUT DIFFICULTY) Cardiovascular: regular rate, rhythm, no murmur Respiratory: normal breath sounds, no respiratory distress, no accessory muscle use Gastrointestinal: normal bowel sounds, non tender, soft, no pulsatile mass Back: no CVA tenderness Extremities: normal inspection, no pedal edema, normal capillary refill Neurologic/Psychiatric: no motor/sensory deficits, alert, normal mood/affect, oriented x 3 Skin: normal color, warm/dry; No rash; tattoos/piercings (MULTIPLE TATTOOS) Progress/Results/Core Measures Suspected Sepsis Recent Fever Within 48 Hours: No Infection Criteria Present: None New/Unexplained Altered Menta: No Sepsis Screen: No Definite Risk SIRS Temperature: Pulse: 74 Respiratory Rate: 18 Laboratory Tests 05/01/19 12:04: White Blood Count 8.2 Blood Pressure 100 /68 Mean: 79 Laboratory Tests 05/01/19 12:04: Creatinine 0.84, INR Comment 0.9, Platelet Count 194, Total Bilirubin 0.3 Results/Orders Lab Results Laboratory Tests Test 05/01/19 11:54 05/01/19 12:04 Range/Units Urine Color YELLOW Urine Clarity CLEAR Urine pH 5.0 5-9 Urine Specific [place] 1.025 H 1.016-1.022 Urine Protein NEGATIVE NEGATIVE Urine Glucose (UA) NEGATIVE NEGATIVE Urine Ketones NEGATIVE NEGATIVE Urine Nitrite NEGATIVE NEGATIVE Urine Bilirubin NEGATIVE NEGATIVE Urine Urobilinogen 0.2 < = 1.0 MG/DL Urine Leukocyte Esterase NEGATIVE NEGATIVE Urine RBC (Auto) NEGATIVE NEGATIVE Urine RBC NONE /HPF Urine WBC RARE /HPF Urine Crystals NONE /LPF Urine Bacteria FEW H /HPF Urine Casts NONE /LPF Urine Mucus MODERATE H /LPF Urine Culture Indicated NO White Blood Count 8.2 4.3-11.0 10^3/uL Red Blood Count 4.56 4.35-5.85 10^6/uL Hemoglobin 12.9 11.5-16.0 G/DL Hematocrit 40 35-52 % Mean Corpuscular Volume 87 80-99 FL Mean Corpuscular Hemoglobin 28 25-34 PG Mean Corpuscular Hemoglobin Concent 32 32-36 G/DL Red Cell Distribution Width 13.8 10.0-14.5 % Platelet Count 194 130-400 10^3/uL Mean Platelet Volume 9.7 7.4-10.4 FL Neutrophils (%) (Auto) 79 H 42-75 % Lymphocytes (%) (Auto) 14 12-44 % Monocytes (%) (Auto) 5 0-12 % Eosinophils (%) (Auto) 2 0-10 % Basophils (%) (Auto) 0 0-10 % Neutrophils # (Auto) 6.5 1.8-7.8 X 10^3 Lymphocytes # (Auto) 1.1 1.0-4.0 X 10^3 Monocytes # (Auto) 0.4 0.0-1.0 X 10^3 Eosinophils # (Auto) 0.2 0.0-0.3 10^3/uL Basophils # (Auto) 0.0 0.0-0.1 10^3/uL Prothrombin Time 12.7 12.2-14.7 SEC INR Comment 0.9 0.8-1.4 Activated Partial Thromboplast Time 31 24-35 SEC Sodium Level 140 135-145 MMOL/L Potassium Level 4.2 3.6-5.0 MMOL/L Chloride Level 110 H 98-107 MMOL/L Carbon Dioxide Level 22 21-32 MMOL/L Anion Gap 8 5-14 MMOL/L Blood Urea Nitrogen 12 7-18 MG/DL Creatinine 0.84 0.60-1.30 MG/DL Estimat Glomerular Filtration Rate > 60 BUN/Creatinine Ratio 14 Glucose Level 89 70-105 MG/DL Calcium Level 9.0 8.5-10.1 MG/DL Corrected Calcium 9.1 8.5-10.1 MG/DL Total Bilirubin 0.3 0.1-1.0 MG/DL Aspartate Amino Transf (AST/SGOT) 21 5-34 U/L Alanine Aminotransferase (ALT/SGPT) 30 0-55 U/L Alkaline Phosphatase 70 40-136 U/L Total Protein 6.6 6.4-8.2 GM/DL Albumin 3.9 3.2-4.5 GM/DL My Orders Orders - MAICOL BEE DO Cbc With Automated Diff (05/01/19 11:48) Comprehensive Metabolic Panel (05/01/19 11:48) Protime With Inr (05/01/19 11:48) Partial Thromboplastin Time (05/01/19 11:48) Ua Culture If Indicated (05/01/19 11:48) Vital Signs/I&O 05/01/19 11:14 Temp 37.0 Pulse 74 Resp 18 B/P (MAP) 100/68 (79) Pulse Ox 98 Capillary Refill : Less Than 3 Seconds Blood Pressure Mean: 79 Departure Impression Primary Impression: Abdominal cramping Additional Impression: state Disposition: 01 HOME, SELF-CARE Condition: Improved Departure-Patient Inst. Referrals: RANDOLPH LLOYD MD (PCP/Family) Primary Care Physician Patient Instructions: Acute Abdomen (Belly Pain), Adult (DC) Add. Discharge Instructions: CLEAR LIQUIDS--WATER ,BROTH, JELLO, GATORADE TAKE TYLENOL NEEDED FOR PAIN RETURN TO ER IF SYMPTOMS WORSEN KEEP YOUR APPOINTMENT WITH DR. HEARD THIS MONTH All discharge instructions reviewed with patient and/or family. Voiced understanding. Scripts Hyoscyamine Sulfate (Levsin-Sl) 0.125 Mg Tab.subl 1-2 TAB SL Q4H for Abdominal Pain, #10 TAB Prov: MAICOL BEE DO 05/01/19 MAICOL BEE DO May 01, 2019 11:59
[2019-05-01 12:15] LABS: BASOPHILS % (AUTO) 0 % (0-10); EOSINOPHILS # (AUTO) 0.2 10^3/uL (0.0-0.3); EOSINOPHILS % (AUTO) 2 % (0-10); HEMATOCRIT 40 % (35-52); HEMOGLOBIN 12.9 G/DL (11.5-16.0); LYMPHOCYTES # (AUTO) 1.1 X 10^3 (1.0-4.0); LYMPHOCYTES % (AUTO) 14 % (12-44); MEAN CORPUSCULAR HEMOGLOBIN 28 PG (25-34); MEAN CORPUSCULAR HGB CONC 32 G/DL (32-36); MEAN CORPUSCULAR VOLUME 87 FL (80-99); MEAN PLATELET VOLUME 9.7 FL (7.4-10.4); MONOCYTES # (AUTO) 0.4 X 10^3 (0.0-1.0); MONOCYTES % (AUTO) 5 % (0-12); NEUTROPHILS # (AUTO) 6.5 X 10^3 (1.8-7.8); NEUTROPHILS % (AUTO) 79 % (42-75); PLATELET COUNT 194 10^3/uL (130-400); RED CELL DISTRIBUTION WIDTH 13.8 % (10.0-14.5); WHITE BLOOD COUNT 8.2 10^3/uL (4.3-11.0)
[2019-05-01 12:19] LABS: BACTERIA,URINE FEW /HPF; WBC,URINE RARE /HPF
[2019-05-01 12:23] LABS: INR 0.9 (0.8-1.4); PROTHROMBIN TIME PATIENT 12.7 SEC (12.2-14.7)
[2019-05-01 12:29] LABS: ALANINE AMINOTRANSFERASE 30 U/L (0-55); ALBUMIN 3.9 GM/DL (3.2-4.5); ALKALINE PHOSPHATASE 70 U/L (40-136); BILIRUBIN,TOTAL 0.3 MG/DL (0.1-1.0); BUN/CREATININE RATIO 14; CARBON DIOXIDE 22 MMOL/L (21-32); CHLORIDE 110 MMOL/L (98-107); CREATININE SERUM 0.84 MG/DL (0.60-1.30); GFR ESTIMATED > 60; GLUCOSE 89 MG/DL (70-105); POTASSIUM 4.2 MMOL/L (3.6-5.0); SODIUM 140 MMOL/L (135-145); TOTAL PROTEIN 6.6 GM/DL (6.4-8.2)
[2019-05-01] MEDS ORDERED: HYOS0.1283 SL (12:40)
[2019-05-01 13:06] VITALS: BP 106/65
== END 2019-05-01 13:06 | disposition home or self-care (01) ==
LOC: EDUNIT# 11:07 → ER 11:08
DX: O99.89 Other specified diseases and conditions complicating pregnancy, childbirth and the puerperium (principal); R10.9 Unspecified abdominal pain; O99.335 Smoking (tobacco) complicating the puerperium; F17.210 Nicotine dependence, cigarettes, uncomplicated
CPT/HCPCS: 36415; 80053; 81000; 85025; 85610; 85730; 99282

== ENCOUNTER 2021-12-06 17:56 | Emergency (ER) | payer MEDICAID ==
[~2021-12-06] VITALS: Ht 190 cm; Wt 84.0 kg
[~2021-12-06 17:56] MED LIST changes: +ACHD5005 PO; +CYCL10TA25 PO; -CYCL10TA9 PO; -HYDR-3812 PO; +HYOS0.1283 SL
--- NOTE | 2021-12-06 18:41 | ED Lower Extremity ---
General Chief Complaint: Lower Extremity Stated Complaint: R FOOT PAIN Nursing Triage Note: TO ROOM 08 ET USING CRUTCHES ET RIGHT FOOT IN TRIP WRAPS. STATES SHE DROPPED A CABINET ONTO HER FOOT THAT HAD A NAIL IN IT CAUSING A PUNCTURE WOUND TO THE FOOT. PT WAS SEEN AT [facility] AND WAS TOLD SHE HAD A FRACTURE TOE BUT STATES THEY PUSHED HER OUT WITHOUT EXPLANATION OR A TETANUS SHOT. Source: patient History of Present Illness Date Seen by Provider: Dec 06, 2021 Time Seen by Provider: 18:30 Initial Comments PT ARRIVES VIA POV PT HAS AN TRIP WRAP TO RIGHT FOOT AND IS ON CRUTCHES STATES ABOUT 1 TO 1 1/2 HOURS AGO, SHE DROPPED A CABINET ON HER RIGHT FOOT--THERE WAS A NAIL STICKING OUT OF THE CABINET AND IT PUNCTURED HER RIGHT FOOT. STATES SHE DID NOT FEEL THE CABINET ON HER FOOT--ONLY THE NAIL POKING INTO HER FOOT WAS WEARING CLOTH TENNIS SHOES AT THE TIME OCCURRED IN [facility] --REMODELING A HOUSE THERE STATES SHE CANNOT WALK OR PUT ANY WEIGHT ON THIS FOOT OR MOVE HER FOOT DUE TO PAIN NO PARESTHESIAS WENT TO [facility]--STATES SHE HAD XRAYS, DID NOT HAVE A TETANUS SHOT SHE STATES "THE DR AND THE NURSE LEFT" AND THEN SOMEONE CAME IN AND WRAPPED HER FOOT AND GAVE HER SOME CRUTCHES AND SENT HER OUT THE DOOR, WITHOUT ANY TEST RESULTS OR INSTRUCTIONS OR A TETANUS SHOT. LAST TETANUS SHOT IS UNKNOWN NO PRIOR INJURY OR PROBLEMS WITH THIS FOOT NO CHRONIC ILLNESSES LMP 1 WEEK AGO, NORMAL. Allergies and Home Medications Allergies Coded Allergies: No Known Drug Allergies (Unverified , 07/03/11) Patient Home Medication List Home Medication List Reviewed: Yes Discontinued Medications Bupropion HCl (Bupropion HCl) 100 Mg Tablet, (Reported) Discontinued Reason: No Longer Taking Entered as Reported by: MATT PAGE on 01/09/18 1008 Last Action: Discontinued Cefdinir (Cefdinir) 300 Mg Capsule, 300 MG PO BID Discontinued Reason: No Longer Taking Prescribed by: FERNANDO NARAYAN on 02/27/19 1816 Last Action: Discontinued Cyclobenzaprine HCl (Cyclobenzaprine HCl) 10 Mg Tablet, 10 MG PO Q8H PRN for SPASMS Discontinued Reason: No Longer Taking Prescribed by: BARNEY OCAMPO on 01/09/18 1051 Last Action: Discontinued Hydrocodone Bit/Acetaminophen (Lortab 5 Mg Tablet) 1 Each Tablet, 1 TAB PO Q4H PRN for pain Discontinued Reason: No Longer Taking Prescribed by: FERNANDO NARAYAN on 02/27/191815 Last Action: Discontinued Hyoscyamine Sulfate (Levsin-Sl) 0.125 Mg Tab.subl, 1-2 TAB SL Q4H Discontinued Reason: No Longer Taking Prescribed by: MAICOL BEE on 05/01/19 1240 Last Action: Discontinued Review of Systems Constitutional: no symptoms reported Musculoskeletal: see HPI Skin: see HPI Psychiatric/Neurological: No Symptoms Reported Past Dkwggzr-Ybgply-Gmblyr Hx Patient Social History Tobacco Use?: Yes Tobacco type used: Cigarettes Smoking Status: Current Someday Smoker Substance use?: No Alcohol Use?: No Immunizations Up To Date Tetanus Booster (TDap): Unknown PED Vaccines UTD: Yes Seasonal Allergies Seasonal Allergies: No Past Medical History Surgeries: Yes (WISDOM TEETH) Respiratory: No Cardiac: No Neurological: No Last Menstrual Period: Nov 29, 2021 Reproductive Disorders: Yes Female Reproductive Disorders: Ovarian Cyst Sexually Transmitted Disease: No Genitourinary: No Gastrointestinal: No Musculoskeletal: No Endocrine: No HEENT: No Cancer: No Psychosocial: No Integumentary: No Blood Disorders: No Family Medical History No Pertinent Family Hx Physical Exam Vital Signs Vital Signs - First Documented 12/06/21 18:00 Temp 36.6 Pulse 81 Resp 16 B/P (MAP) 139/89 (106) Pulse Ox 98 O2 Delivery Room Air Capillary Refill : Less Than 3 Seconds Height, Weight, BMI Height: 6'3.00" Weight: 198lbs. oz. 89.619146by; 23.00 BMI Method:Stated General Appearance: WD/WN, no apparent distress Ankles: right ankle normal inspection Feet: right foot other (PUNCTURE WOUND TO DORSAL/MEDIAL ASPECT OF RIGHT FOOT--NO BLEEDING, NO SWELLING, NO BRUISING. DIFFUSE TENDERNESS TO RIGHT FOOT . LIMITED ROM DUE TO PAIN. SENSORY/VASCULAR INTACT. NO BRUISING OR SWELLING OR D ISCOLORATION OR ACUTE DEFORMITY TO FOOT OR TOES. 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 ) Neurologic/Psychiatric: collaborating supervising physician II-XII nml as tested, alert, normal mood/affect, oriented x 3 Skin: normal color, warm/dry, tattoos/piercings (EXTENSIVE TATTOOS) Procedures/Interventions Splinting and Joint Reduction : Trip wrap: Yes Immobilizers: Step Light Walker s/m/lg Progress/Results/Core Measures Results/Orders My Orders Orders - ROHITMAICOL Martinez DO Foot, Right, 3 View (12/06/21 18:35) Dipht,Pertuss(Acell),Tet Adult (Boostrix (12/06/21 18:45) Medications Given in ED Current Medications Medications Dose Ordered Sig/Rubia Route Start Time Stop Time Status Last Admin Dose Admin Diphtheria/ Tetanus/Acell Pertussis 0.5 ml ONCE ONCE IM 12/06/21 18:45 12/06/21 18:46 DC 12/06/21 18:46 0.5 ML Vital Signs/I&O 12/06/21 18:00 Temp 36.6 Pulse 81 Resp 16 B/P (MAP) 139/89 (106) Pulse Ox 98 O2 Delivery Room Air Blood Pressure Mean: 106 Progress Progress Note : Progress Note AT DISMISSAL, PT ALSO STATES THAT THEY GAVE HER A PRESCRIPTION TO GET A WALKING BOOT ON THURSDAY Diagnostic Imaging Comments XRAYS RIGHT FOOT--PER RADIOLOGIST REPORT AT 1910 There is lateral subluxation of the distal 2nd phalanx relation of the middle phalanx. This is age indeterminate. No fracture. No dislocation. IMPRESSION: Lateral subluxation of the distal 2nd phalanx age indeterminate. Reviewed: Reviewed by Me Departure Impression Primary Impression: Puncture wound of right foot Additional Impressions: Dpsuwtkdom-zwidfexho-qvknyip (DPT) vaccination administered at current visit Contusion of right foot Disposition: 01 HOME, SELF-CARE Condition: Stable Departure-Patient Inst. Decision time for Depature: 19:15 Referrals: RANDOLPH LLOYD MD (PCP/Family) Primary Care Physician Patient Instructions: Contusion (DC), Going Up and Down Curbs or Stairs With a Walker or Crutches, How to Use Crutches, How to Use an Elastic Bandage, Taking Care of Cuts, Scrapes, and Puncture Wounds, Walking Boot Add. Discharge Instructions: TRIP WRAP, WALKING BOOT AND CRUTCHES NEEDED FOR COMFORT ICE TO AREA AT 20 MINUTE INTERVALS SOAK FOOT IN WARM SOAPY WATER 2-3 TIMES A DAY FOLLOW UP WITH [facility] IN 2-3 DAYS FOR RECHECK OF FOOT WOUND All discharge instructions reviewed with patient and/or family. Voiced understanding. Scripts Sulfamethoxazole/Trimethoprim (Bactrim Ds Tablet) 1 Each Tablet 1 EACH PO BID, #20 TAB Prov: MAICOL BEE DO 12/06/21 Naproxen (Naproxen) 500 Mg Tablet.dr 500 MG PO BID, #20 TAB Prov: MAICOL BEE DO 12/06/21 MAICOL BEE DO Dec 06, 2021 18:41
[2021-12-06] MEDS ORDERED: TETANUS,DIPTH,PERTUSS P/F (BOOSTRIX) 0.5 ML VIAL IM ONE (18:45)
--- NOTE | 2021-12-06 19:00 | Diagnostic Imaging Report ---
INDICATION: Foot pain. EXAMINATION: Right foot, 12/06/2021. FINDINGS: 3 views of the foot. There is lateral subluxation of the distal 2nd phalanx relation of the middle phalanx. This is age indeterminate. No fracture. No dislocation. IMPRESSION: Lateral subluxation of the distal 2nd phalanx age indeterminate. Dictated by: Dictated on workstation # [id number]
[2021-12-06 19:17] VITALS: BP 127/77
[2021-12-06] MEDS ORDERED: NAPR500T8 PO (19:20)
[2021-12-06] MEDS ORDERED: RX-NAPROXEN (NAPROSYN) 250 MG TAB PPK#4 PO STA (19:20)
[2021-12-06] MEDS ORDERED: RX-TRIMETH/SULFA. 160-800 MG (BACTRIM DS) TAB PPK#2 PO STA (19:20)
[2021-12-06] MEDS ORDERED: SULF1TAB38 PO (19:20)
== END 2021-12-06 19:39 | disposition home or self-care (01) ==
LOC: EDUNIT# 17:56 → ER 17:58
DX: S91.331A Puncture wound without foreign body, right foot, initial encounter (principal); F17.210 Nicotine dependence, cigarettes, uncomplicated; Z23 Encounter for immunization; Z28.310 Unvaccinated for COVID-19; W45.0XXA Nail entering through skin, initial encounter
CPT/HCPCS: 73630; 90715